=== PATIENT | female | born 1940 | race African-American/Black ===

== ENCOUNTER 2019-08-03 01:32 | Inpatient (IN) | payer MEDICARE, OTHER ==
[2019-08-03] VITALS (11 sets, daily range): BP systolic 140–201; BP diastolic 60–106
[~2019-08-03] VITALS: Ht 167.6 cm; Wt 78.6 kg
[~2019-08-03 01:32] MED LIST: ACET500T68 PO; AMLO2.5T2 PO; ASPI-630 PO; CARV25TA PO; CRESTOR20 MG PO; FERR325T14 PO; INSU100I17 SQ; INSU100I27 SQ; LACT1CAP2 PO; MULT1TAB52 PO; OMEG1CAP6 PO; PANT40TA3 PO
[2019-08-03] MEDS ORDERED: NITROGLYCERIN OINT 1 GM PACKET. TP ONE (02:15)
[2019-08-03] MEDS ORDERED: ASPIRIN 325 MG TABLET PO ONE (02:15)
--- NOTE | 2019-08-03 02:28 | PHYS DOC ---
Past History Past Medical History: Anemia, CAD, CHF, Diabetes, High Cholesterol, Hypertension, Renal Failure Additional Past Medical Histor: Visual impairment Past Surgical History: Cholecystectomy Additional Past Surgical Histo: Cataract Smoking: Non-smoker Alcohol Use: None Drug Use: None Adult General Chief Complaint Chief Complaint: SHORTNESS OF BREATH HPI HPI 79-year-old female presents via EMS with 3 day history of progressive shortness of breath with associated cough. Patient reports she woke early this morning with sensation of being "unable to breathe ". Reports worse with laying flat. Reports baseline leg swelling. Patient trialed home nebulizer treatment without significant improvement. Denies fever or chills. Denies trauma. EMS placed patient on CPAP with interval improvement of breathing. Review of Systems Review of Systems Constitutional: Denies fever or chills Eyes: Denies redness or eye pain HENT: Denies nasal congestion or sore throat Respiratory: Reports cough and shortness of breath Cardiovascular: Denies chest pain or palpitations GI: Denies abdominal pain, nausea, or vomiting : Denies dysuria or hematuria Musculoskeletal: Denies back pain; reports BLE swelling Integument: Denies rash or skin lesions Neurologic: Denies headache, focal weakness or sensory changes Complete systems were reviewed and found to be within normal limits, except as documented in this note. Current Medications Current Medications Current Medications Medications (Trade) Dose Ordered Sig/Yamilet Start Time Stop Time Status Last Admin Dose Admin Aspirin (Jose Aspirin) 325 mg 1X ONCE 08/03/19 02:15 08/03/19 02:16 DC 08/03/19 02:17 325 MG Nitroglycerin (Nitro-Bid Oint) 1 inch 1X ONCE 08/03/19 02:15 08/03/19 02:16 DC 08/03/19 02:18 1 INCH Allergies Allergies Allergies Coded Allergies Type Severity Reaction Last Updated Verified atorvastatin Allergy Intermediate 06/26/15 Yes ezetimibe Allergy Intermediate 06/26/15 Yes metformin Allergy Intermediate 06/26/15 Yes niacin Allergy Intermediate 06/26/15 Yes perindopril Allergy Intermediate 06/26/15 Yes pravastatin Allergy Intermediate 06/26/15 Yes Physical Exam Physical Exam Constitutional: Well developed, well nourished, no acute distress, non-toxic appearance HENT: Normocephalic, atraumatic, oropharynx moist Eyes: Conjunctiva normal, no discharge Neck: Normal range of motion, no tenderness, supple Cardiovascular: Heart rate normal, regular rhythm Lungs & Thorax: Bilateral breath sounds clear equal, fine rales noted bilaterally at bases Abdomen: Soft, no tenderness Skin: Warm, dry, no erythema, no rash Extremities: No tenderness, ROM intact, 2+ edema to BLE Neurologic: Alert and oriented X 3, no focal deficits noted Psychologic: Affect normal, judgement normal Current Patient Data Vital Signs Vital Signs Date Time Temp Pulse Resp B/P (MAP) Pulse Ox O2 Delivery O2 Flow Rate FiO2 08/03/19 02:18 69 24 170/83 (112) 97 Room Air EKG EKG @0142 NSR at 84bpm with occasional PAC, NO ST elevation, QRS 88ms, QT/QTc 440/524ms Radiology/Procedures Radiology/Procedures PROCEDURE: PORTABLE CHEST 1V Study: PORTABLE CHEST 1V Indication: Dyspnea. Cough. Comparison: None. Findings: The cardiomediastinal silhouette is enlarged. Aortic atherosclerotic calcifications. Calcification in the right hilar region suggestive of a granuloma. A few calcified granulomas also seen elsewhere. Somewhat prominent central vascular structures as well as mildly increased interstitial markings. Haziness at the lung bases favored secondary to volume loss. Suspected trace right pleural effusion. No discrete lobar infiltrate. No pneumothorax. No free air seen under the diaphragm. Impression: 1. The cardiomediastinal silhouette is enlarged and the central vascular structures somewhat prominent. Background increased interstitial markings raising the question of pulmonary edema and there appears to be a trace pleural effusion on the right. A discrete lobar infiltrate to suggest a superimposed infectious process is not appreciated. 2. Sequela of a remote granulomatous process. 3. Basilar volume loss. Electronically signed by: JAMI MANLEY MD (08/03/2019 3:05 AM) [facility] Course & Med Decision Making Course & Med Decision Making Pertinent Labs and Imaging studies reviewed. (See chart for details) Patient presents with history of present illness and physical exam concerning for CHF exacerbation. Symptomatic treatment provided with an has dermal nitroglycerin and Lasix. EKG stable. Labs obtained and posted to chart. H/H baseline per [facility] review. Initial troponin within normal limits. BNP elevated. CXR with some vascular congestion noted. Acute on chronic renal insufficiency noted. Bumex provided. Hypokalemia addressed. Patient requiring admission for further evaluation and treatment. Discussed with Dr. Catalan (hospitalist) who is in agreement with admission. Discussed findings and plan with patient and family, who acknowledge understanding and agreement. Dragon Disclaimer Dragon Disclaimer This electronic medical record was generated, in whole or in part, using a voice recognition dictation system. Departure Departure: Impression: Primary Impression: Acute exacerbation of CHF (congestive heart failure) Additional Impressions: Hypokalemia Acute on chronic renal insufficiency Disposition: ADMITTED INPATIENT Admitting Physician: Ignacia Catalan Condition: STABLE Referrals: IGNACIA CATALAN MD (PCP) Problem Qualifiers Primary Impression: Acute exacerbation of CHF (congestive heart failure) Heart failure type: unspecified Qualified Codes: I50.9 - Heart failure, unspecified KEIKO HAMMONDS DO Aug 03, 2019 02:28
[2019-08-03 03:03] LABS: BASO # 0.1 x10^3/uL (0.0-0.2); BASO % 1 % (0-3); EOS # 0.4 x10^3/uL (0.0-0.7); EOS % 5 % (0-3); HEMATOCRIT 23.8 % (36.0-47.0); LYMPH # 0.9 x10^3/uL (1.0-4.8); LYMPH % 12 % (24-48); MEAN CORPUSCULAR HEMOGLOBIN 27 pg (25-35); MEAN CORPUSCULAR HGB CONC 33 g/dL (31-37); MEAN CORPUSCULAR VOLUME 81 fL (79-100); MONO # 0.3 x10^3/uL (0.0-1.1); MONO % 3 % (0-9); NEUT # 6.2 x10^3uL (1.8-7.7); NEUT % 79 % (31-73); PLATELET COUNT 267 x10^3/uL (140-400); RED BLOOD COUNT 2.95 x10^6/uL (3.50-5.40); RED CELL DISTRIBUTION WIDTH 16.7 % (11.5-14.5); WHITE BLOOD COUNT 7.8 x10^3/uL (4.0-11.0)
--- NOTE | 2019-08-03 03:07 | RAD ---
Study: PORTABLE CHEST 1V Indication: Dyspnea. Cough. Comparison: None. Findings: The cardiomediastinal silhouette is enlarged. Aortic atherosclerotic calcifications. Calcification in the right hilar region suggestive of a granuloma. A few calcified granulomas also seen elsewhere. Somewhat prominent central vascular structures as well as mildly increased interstitial markings. Haziness at the lung bases favored secondary to volume loss. Suspected trace right pleural effusion. No discrete lobar infiltrate. No pneumothorax. No free air seen under the diaphragm. Impression: 1. The cardiomediastinal silhouette is enlarged and the central vascular structures somewhat prominent. Background increased interstitial markings raising the question of pulmonary edema and there appears to be a trace pleural effusion on the right. A discrete lobar infiltrate to suggest a superimposed infectious process is not appreciated. 2. Sequela of a remote granulomatous process. 3. Basilar volume loss. Electronically signed by: JAMI MANLEY MD (08/03/2019 3:05 AM) [facility]
[2019-08-03 03:29] LABS: ALBUMIN 2.8 g/dL (3.4-5.0); ALBUMIN/GLOBULIN RATIO 0.9 (1.0-1.7); CALCIUM 7.7 mg/dL (8.5-10.1); GFR 29.2; POTASSIUM 3.4 mmol/L (3.5-5.1); TOTAL BILIRUBIN 0.7 mg/dL (0.2-1.0)
[2019-08-03] MEDS ORDERED: ONDANSETRON PF 4 MG/2 ML VIAL. IV PRN (03:45)
[2019-08-03] MEDS ORDERED: DEXTROSE 50% 25 GM / 50ML DISP.SYRIN. IV PRN (03:45)
[2019-08-03] MEDS ORDERED: BUMETANIDE 1 MG/4 ML VIAL. IVP ONE (04:00)
[2019-08-03] MEDS ORDERED: POTASSIUM CHLORIDE 20 MEQ TABLET.ER. PO ONE ×2 (04:00→10:00)
--- NOTE | 2019-08-03 04:30 | EKG ---
[address] [address] Test Date: 2019-08-03 Test Time: 01:42:28 Pat Name: MILADYS ARMSTRONG Department: Room: ICU06 1 Gender: F [employer]: : [id number] Requested By: KEKIO HAMMONDS Order Number: [id number] Reading MD: Mj De Dios MD Measurements Intervals [place] Rate: 84 P: 90 NH: 238 QRS: -18 QRSD: 88 T: 22 QT: 440 QTc: 524 Interpretive Statements SINUS RHYTHM ATRIAL PREMATURE COMPLEX(ES) PROLONGED NH INTERVAL Electronically Signed On 08-13-2019 11:50:59 CDT by Mj De Dios MD
[2019-08-03 06:17] LABS: BILIRUBIN,URINE NEG (NEG); CLARITY,URINE CLEAR; COLOR,URINE YELLOW; GLUCOSE,URINE 100 mg/dL (NEG); NITRITE,URINE NEG (NEG); UROBILINOGEN,URINE 0.2 mg/dL (0.2 mg/dL)
[2019-08-03 06:18] LABS: BACTERIA,URINE FEW /HPF (0-FEW); GRANULAR CASTS,URINE FEW /HPF; HYALINE CASTS, URINE FEW /HPF; RBC,URINE OCC /HPF (0-2); SQUAMOUS EPITHELIAL CELL,UR MOD /LPF; WBC,URINE OCC /HPF (0-4)
[2019-08-03] MEDS ORDERED: GARL10002 PO (07:06)
[2019-08-03] MEDS ORDERED: ASPI81TA50 PO (07:06)
[2019-08-03] MEDS ORDERED: LOSA100T14 PO (07:06)
[2019-08-03] MEDS ORDERED: INSU100I13 SQ (07:06)
[2019-08-03] MEDS ORDERED: CARV6.253 PO (07:06)
[2019-08-03] MEDS ORDERED: ATOR40TA59 PO (07:06)
[2019-08-03] MEDS ORDERED: FURO40TA4 PO (07:06)
[2019-08-03] MEDS: INSULIN LISPRO 300 UNITS/3 ML VIAL. SQ SCH ×6 (08:00→17:00)
[2019-08-03] MEDS ORDERED: DEXTROSE ORAL GEL 15 GM TUBE. ONE (08:28)
[2019-08-03] MEDS: OMEGA-3 FATTY ACIDS/FISH OIL 1,000 MG CAPSULE. PO SCH (09:00)
[2019-08-03] MEDS ORDERED: NON FORMULARY ITEM (Garlic 1,000 MG) PO SCH (09:00)
[2019-08-03] MEDS: ASPIRIN ENTERIC COATED 81 MG TABLET.DR. PO SCH (09:04)
[2019-08-03] MEDS: LOSARTAN 50 MG TABLET. PO SCH (09:05)
[2019-08-03] MEDS: CARVEDILOL 6.25 MG TABLET PO SCH ×2 (09:06→21:03)
--- NOTE | 2019-08-03 09:24 | PDOC2 ---
CARDIAC CONSULT DATE OF CONSULT Date Of Consult DATE: 08/03/19 TIME: 09:22 REASON FOR CONSULT Reason for Consult Elevated blood pressure REFERRING PHYSICIAN Referring Physician Dr. Peter SOURCE Source: Chart review, Patient HPI History of Present Illness This is a 79 yo female who presented secondary to shortness of breath and cough. Blood pressure has been labile, which prompted this consult. Patient reports cold for the last couple of weeks. Has cough, but has been non-productive despite feeling that she has a lot of secretions. Last night, went to be as usual. Woke up about 1am and couldn't breath. Was very short of air. Family attempted to calm her breathing, but shortness of breath persisted so they landy led EMS. Patient denies as chest pain, palpitation, dizziness, diaphoresis, or nausea/vomiting. Feeling better this am. Blood pressure has been significantly elevated this morning. Reports compliance with medications including losartan and coreg. PAST MEDICAL HISTORY Cardiovascular: CHF, HTN, hyperipidemia GI: GI bleed Heme/Onc: Anemia NOS Musculoskeletal: Osteoarthritis Renal/: Chronic renal insuff Endocrine: Diabetes PAST SURGICAL HISTORY Past Surgical History: No pertinent history FAMILY HISTORY Family History: Diabetes SOCIAL HISTORY Smoke: No ALCOHOL: none Drugs: None Lives: with Family CURRENT MEDICATIONS Current Medications Current Medications Nitroglycerin (Nitro-Bid Oint) 1 inch 1X ONCE TP Last administered on 08/03/19at 02:18; Start 08/03/19 at 02:15; Stop 08/03/19 at 02:16; Status DC Aspirin (Jose Aspirin) 325 mg 1X ONCE PO Last administered on 08/03/19at 02:17; Start 08/03/19 at 02:15; Stop 08/03/19 at 02:16; Status DC Bumetanide (Bumex) 0.5 mg 1X ONCE IVP Last administered on 08/03/19at 05:07; Start 08/03/19 at 04:00; Stop 08/03/19 at 04:01; Status DC Potassium Chloride (Klor-Con) 40 meq 1X ONCE PO Last administered on 08/03/19at 04:03; Start 08/03/19 at 04:00; Stop 08/03/19 at 04:01; Status DC Ondansetron HCl (Zofran) 4 mg PRN Q4HRS PRN IV NAUSEA/VOMITING; Start 08/03/19 at 03:45; Stop 08/04/19 at 03:44 Insulin Human Lispro (HumaLOG) 0-5 UNITS TIDWMEALS SQ ; Start 08/03/19 at 08:00 Dextrose (Dextrose 50%-Water Syringe) 12.5 gm PRN Q15MIN PRN IV SEE COMMENTS Last administered on 08/03/19at 08:35; Start 08/03/19 at 03:45 Influenza Virus Vaccine Quadrival (Afluria Quad 2019-20 (3yr Up) Syringe) 0.5 ml ONCE ONCE VAX IM ; Start 08/04/19 at 09:00; Stop 08/04/19 at 09:01 Aspirin (Aspirin Enteric Coated) 81 mg DAILY PO Last administered on 08/03/19at 09:04; Start 08/03/19 at 09:00 Carvedilol (Coreg) 6.25 mg BID PO Last administered on 08/03/19at 09:06; Start 08/03/19 at 09:00 Fish Oil (Fish Oil) 1,000 mg DAILY PO Last administered on 08/03/19at 09:00; Start 08/03/19 at 09:00 Atorvastatin Calcium (Lipitor) 40 mg QHS PO ; Start 08/03/19 at 21:00 Non-Formulary Medication (Garlic ) 1,000 mg DAILY PO ; Start 08/03/19 at 09:00; Stop 08/03/19 at 07:23; Status DC Insulin Human Lispro (HumaLOG) 4 units TIDWMEALS SQ ; Start 08/03/19 at 08:00 Insulin Glargine (Lantus Syringe) 12 unit QHS SQ ; Start 08/03/19 at 21:00 Losartan Potassium (Cozaar) 100 mg DAILY PO Last administered on 08/03/19at 09:05; Start 08/03/19 at 09:00 Glucose (Insta-Glucose) 15 gm STK-MED ONCE .ROUTE ; Start 08/03/19 at 08:28; Stop 08/03/19 at 08:29; Status DC Active Scripts Active Reported Garlic 1,000 Mg Capsule 1,000 Mg PO DAILY LAST DOSE GIVEN: DATE: TIME: NEXT DOSE DUE: DATE: TIME: Aspir-Low (Aspirin) 81 Mg Tablet.dr 81 Mg PO DAILY LAST DOSE GIVEN: DATE: TIME: NEXT DOSE DUE: DATE: TIME: Furosemide 40 Mg Tablet 40 Mg PO [id number] LAST DOSE GIVEN: DATE: TIME: NEXT DOSE DUE: DATE: TIME: Atorvastatin Calcium 40 Mg Tablet 40 Mg PO DAILY LAST DOSE GIVEN: DATE: TIME: NEXT DOSE DUE: DATE: TIME: Losartan Potassium 100 Mg Tablet 100 Mg PO DAILY LAST DOSE GIVEN: DATE: TIME: NEXT DOSE DUE: DATE: TIME: Carvedilol 6.25 Mg Tablet 6.25 Mg PO BID LAST DOSE GIVEN: DATE: TIME: NEXT DOSE DUE: DATE: TIME: Lantus Solostar (Insulin Glargine,Hum.rec.anlog) 100 Unit/1 Ml Insuln.pen 12 Unit SQ QHS LAST DOSE GIVEN: DATE: TIME: NEXT DOSE DUE: DATE: TIME: Fish Oil 1,000 Mg Capsule ([place]-3 Fatty Acids/Fish Oil) 1 Each Capsule 1 Cap PO DAILY LAST DOSE GIVEN: DATE: TIME: NEXT DOSE DUE: DATE: TIME: Novolog Flexpen (Insulin Aspart) 100 Unit/1 Ml Insuln.pen 4 Unit SQ TIDWMEALS LAST DOSE GIVEN: DATE: TIME: NEXT DOSE DUE: DATE: TIME: ALLERGIES Allergies: Coded Allergies: ezetimibe (Verified Allergy, Intermediate, 06/26/15) metformin (Verified Allergy, Intermediate, 06/26/15) niacin (Verified Allergy, Intermediate, 06/26/15) perindopril (Verified Allergy, Intermediate, 06/26/15) pravastatin (Verified Allergy, Intermediate, 06/26/15) ROS Review of Systems 14 point ROS conducted with pertinent positives noted above in HPI PHYSICAL EXAM General: Alert, Oriented X3, Cooperative, No acute distress HEENT: Atraumatic, Mucous membr. moist/pink Lungs: Other (rhonchi throughout ) Heart: Regular rate, Normal S1, Normal S2 Abdomen: Soft Extremities: Other (trace bilateral LE edema ) Skin: No breakdown Neuro: Normal speech, Sensation intact Psych/Mental Status: Mental status NL, Mood NL MUSCULOSKELETAL: Osteoarthritic changes both hands VITALS Vital Signs Vital Signs Date Time Temp Pulse Resp B/P (MAP) Pulse Ox O2 Delivery O2 Flow Rate FiO2 08/03/19 09:06 212/117 08/03/19 09:05 72 08/03/19 05:30 20 99 Room Air 08/03/19 04:30 97.1 LABS LABS Laboratory Tests Test 08/03/19 01:55 08/03/19 05:30 08/03/19 06:40 08/03/19 08:27 White Blood Count 7.8 x10^3/uL (4.0-11.0) Red Blood Count 2.95 x10^6/uL (3.50-5.40) Hemoglobin 8.0 g/dL (12.0-15.5) Hematocrit 23.8 % (36.0-47.0) Mean Corpuscular Volume 81 fL (79-100) Mean Corpuscular Hemoglobin 27 pg (25-35) Mean Corpuscular Hemoglobin Concent 33 g/dL (31-37) Red Cell Distribution Width 16.7 % (11.5-14.5) Platelet Count 267 x10^3/uL (140-400) Neutrophils (%) (Auto) 79 % (31-73) Lymphocytes (%) (Auto) 12 % (24-48) Monocytes (%) (Auto) 3 % (0-9) Eosinophils (%) (Auto) 5 % (0-3) Basophils (%) (Auto) 1 % (0-3) Neutrophils # (Auto) 6.2 x10^3uL (1.8-7.7) Lymphocytes # (Auto) 0.9 x10^3/uL (1.0-4.8) Monocytes # (Auto) 0.3 x10^3/uL (0.0-1.1) Eosinophils # (Auto) 0.4 x10^3/uL (0.0-0.7) Basophils # (Auto) 0.1 x10^3/uL (0.0-0.2) Sodium Level 143 mmol/L (136-145) Potassium Level 3.4 mmol/L (3.5-5.1) Chloride Level 107 mmol/L (98-107) Carbon Dioxide Level 28 mmol/L (21-32) Anion Gap 8 (6-14) Blood Urea Nitrogen 31 mg/dL (7-20) Creatinine 2.0 mg/dL (0.6-1.0) Estimated GFR (Cockcroft-Gault) 29.2 BUN/Creatinine Ratio 16 (6-20) Glucose Level 114 mg/dL (70-99) Lactic Acid Level 1.2 mmol/L (0.4-2.0) Calcium Level 7.7 mg/dL (8.5-10.1) Magnesium Level 2.0 mg/dL (1.8-2.4) Total Bilirubin 0.7 mg/dL (0.2-1.0) Aspartate Amino Transf (AST/SGOT) 34 U/L (15-37) Alanine Aminotransferase (ALT/SGPT) 28 U/L (14-59) Alkaline Phosphatase 151 U/L (46-116) Creatine Kinase 143 U/L (26-192) Creatine Kinase MB (Mass) 2.2 ng/mL (0.0-3.6) Creatine Kinase MB Relative Index 1.5 % (0-4) Troponin I Quantitative < 0.017 ng/mL (0-0.055) 0.019 ng/mL (0-0.055) YT-Qjq-F-Type Natriuretic Peptide 38403 pg/mL (0-449) Total Protein 6.0 g/dL (6.4-8.2) Albumin 2.8 g/dL (3.4-5.0) Albumin/Globulin Ratio 0.9 (1.0-1.7) Urine Collection Type Unknown Urine Color Yellow Urine Clarity Clear Urine pH 5.5 Urine Specific [place] 1.020 Urine Protein >100 mg/dl (NEG-TRACE) Urine Glucose (UA) 100 mg/dL (NEG) Urine Ketones (Stick) Neg mg/dL (NEG) Urine Blood Mod (NEG) Urine Nitrite Neg (NEG) Urine Bilirubin Neg (NEG) Urine Urobilinogen Dipstick 0.2 mg/dL (0.2 mg/dL) Urine Leukocyte Esterase Neg (NEG) Urine RBC Occ /HPF (0-2) Urine WBC Occ /HPF (0-4) Urine Squamous Epithelial Cells Mod /LPF Urine Bacteria Few /HPF (0-FEW) Urine Hyaline Casts Few /HPF Urine Granular Casts Few /HPF Glucose (Fingerstick) 36 mg/dL (70-99) Test 08/03/19 08:39 08/03/19 08:42 Glucose Level 264 mg/dL (70-99) Glucose (Fingerstick) 238 mg/dL (70-99) ASSESSMENT/PLAN Assessment/Plan 1. Dyspnea with bronchitis and mild a/c CHF 2. Acute on chronic probable diastolic HF 3. Accelerated hypertension; remains labile 4. Hyperlipidemia; statin 5. Diabetes, II with episode of hypoglycemia 6. CKD 7. Hypokalemia Recommendations Mild diuresis with monitoring or renal function Baseline echo Losartan and Coreg resumed this morning Hydralazine IV PRN Monitor trends. Add Norvasc if blood pressure remains elevated ASA, statin Further recs pending above CHAD MCKEON APRN Aug 03, 2019 09:24
[2019-08-03] MEDS: hydrALAZINE 20 MG/ML VIAL. IV PRN ×3 (09:47→22:15)
[2019-08-03] MEDS ORDERED: FUROSEMIDE 20 MG/2 ML VIAL IVP ONE (10:00)
--- NOTE | 2019-08-03 16:13 | HP ---
ADMIT DATE: 08/03/2019 HISTORY OF PRESENT ILLNESS: The patient is a 79-year-old -[place] female patient who came to the Emergency Room with ____ complaints of progressive shortness of breath associated with cough. The patient stated that she has been having cough for almost 2 weeks now; however, she woke up early this morning with a sensation of being unable to breathe. It was worse with lying flat ____ leg swelling. The patient's tried home nebulizer treatment without much improvement. She denied any chest pain, denied any chills, rigors or fever. She was started on CPAP with improvement in her breathing and was brought to the Emergency Room where she was ____. Her lab work shows that she has normochromic normocytic anemia and her chemistry shows that she has chronic kidney disease. Her beta natriuretic peptide was 16,461, mild hypokalemia. Urinalysis was positive for large amount of protein and glucose, negative for ketones, moderate amount of blood, negative for nitrite and leukocyte esterase. Her chest x-ray ____ increased interstitial markings raising questionable pulmonary edema. There is trace pleural effusion on the right side with discrete lobar infiltrate suggesting superimposed infection ____ was not appreciated, has sequela of remote granulomatous process and basilar volume loss. Her troponin was less than 0.017 and the patient was admitted to the ICU with acute on chronic diastolic congestive heart failure ____. The patient is known to have hyperlipidemia, type 2 diabetes with an episode of hypoglycemia this morning. She has chronic kidney disease and hypokalemia. Her home medications were resumed and was admitted with a plan to do 2 more sets of cardiac enzyme, consult the Cardiology team. PAST MEDICAL HISTORY: Significant for hypertension, hyperlipidemia. She is known to have chronic diastolic congestive heart failure, GI bleed, anemia, osteoarthritis, chronic renal insufficiency and type 2 diabetes mellitus. FAMILY HISTORY: Significant for type 2 diabetes. PAST SURGICAL HISTORY: Significant for esophagogastroduodenoscopy, cataract extraction, cholecystectomy and colonoscopy. ALLERGIES: She is allergic to VYTORIN, ZETIA, NIACIN, METFORMIN, PRAVASTATIN and PERINDOPRIL. FAMILY HISTORY: Positive for Alzheimer's disease. SOCIAL HISTORY: She is single and retired. She does not smoke, does not use drugs. No children. She lives with her niece and her children. REVIEW OF SYSTEMS: The patient has had bilateral cataract extraction, but denied any blurring of vision, glaucoma or macular degeneration. Denied any earache, tinnitus or sensorineural deafness. Denied any nosebleeds, stuffy nose or postnasal drip. Denied any sore throat, sore tongue, toothache, hoarseness of voice or difficulty swallowing. Denied any nausea, vomiting, diarrhea or constipation. Denied any hematemesis, melena, hematochezia. Denied any dysuria, frequency or hematuria. She denied any chest pain, but did complain of shortness of breath, cough, mostly dry. PHYSICAL EXAMINATION: GENERAL: On arrival to the Emergency Room, the patient was pale, but no jaundice, cyanosis or thyromegaly. No jugular venous distention. Mild bilateral lower limb edema, more on the right than left. VITAL SIGNS: Her heart rate was 86, blood pressure was 170/83, temperature was 97.5, respiratory rate 24 and oxygen saturation was 98% on room air. HEAD, EYES, EARS, NOSE AND THROAT: Showed normocephalic, atraumatic. NECK: Supple. HEART: Showed normal first and second heart sounds with no gallop or murmur. CHEST: Shows central trachea, equally reduced expansion, reduced air entry, vesicular sounds. I could not really appreciate any crepitation or rhonchi. ABDOMEN: Distended, soft, nontender. NEUROLOGIC: She is awake, alert, responding appropriately. All cranial nerves intact. EXTREMITIES: She moves extremities without difficulty. LABORATORY DATA: This morning showed white cell count 7800, hemoglobin 8, hematocrit 24, MCV 81 and platelet count 267,000 with normal manual differential. Her chemistry showed a serum sodium ____, potassium 3.4, chloride 107, bicarbonate 28, anion gap of 8, BUN 31, creatinine 2, estimated GFR was 29 mL per minute. Her glucose was ____, calcium was 7.7, magnesium 2. Total bilirubin, AST, ALT, alkaline phosphatase ____. CK was 143. Her beta natriuretic peptide was 16,461. Total protein was 6, albumin was 2.8. Her urinalysis showed the urine was yellow, clear with pH of 5.5, specific gravity of 1.020. The urine was positive for protein, glucose, negative for ketones. There was moderate amount of blood ____ negative for nitrites ____ rbc's, no wbc's and no bacteria.. Her chest x-ray showed that her cardiomediastinal silhouette is enlarged with somewhat prominent central vascular structures, background increased interstitial marking, raising the question of pulmonary edema and there appears to be a trace pleural effusion in the right, discrete lobar infiltrate ____ superimposed infectious process is not appreciated as sequela of remote granulomatous process. ASSESSMENT AND PLAN: In summary, the patient was admitted with acute on chronic diastolic congestive heart failure, hypokalemia and acute on chronic kidney injury. Her baseline creatinine is 1.4-1.5. UMAIR CATALAN MD DR: STEFFANIE/verenice JOB#: [id number] / [id number]
--- NOTE | 2019-08-03 16:43 | RAD ---
LEFT LEG VENOUS DOPPLER STUDY: Clinical indications: Left leg swelling and sudden onset of shortness of breath. Findings: Duplex sonography (including escobar scale evaluation and color flow and waveform spectral analysis) of the proximal aspect of the greater saphenous vein and the proximal aspect of the profunda femoral vein and the entire length of the common femoral and superficial femoral and popliteal veins and the tibioperoneal trunk and the proximal aspect of the posterior tibial and peroneal veins of the left leg was performed. Normal compressibility, augmentation of color Doppler flow after calf compression, and respiratory variation of Doppler flow is seen. Thus, there are no sonographic findings of deep venous thrombosis within these veins. Impression: There are no sonographic findings of deep venous thrombosis within the veins discussed above of the left lower extremity. RIGHT LEG VENOUS DOPPLER STUDY: Clinical indications: Right leg swelling and sudden onset of shortness of breath. Findings: Duplex sonography (including escobar scale evaluation and color flow and waveform spectral analysis) of the proximal aspect of the greater saphenous vein and proximal aspect of the profunda femoral vein and the entire length of the common femoral and superficial femoral and popliteal veins and the tibioperoneal trunk and the proximal aspect of the posterior tibial and peroneal veins of the right leg was performed. Normal compressibility, augmentation of color Doppler flow after calf compression, and respiratory variation of Doppler flow is seen. Thus, there are no sonographic findings of deep venous thrombosis within these veins. Impression: There are no sonographic findings of deep venous thrombosis within the veins discussed above of the right lower extremity. Electronically signed by: Alejandro Eckert MD (08/03/2019 4:40 PM) [id number]
[2019-08-03] MEDS ORDERED: ATORVASTATIN CALCIUM 20 MG TABLET PO SCH (21:00)
[2019-08-03] MEDS ORDERED: INSULIN GLARGINE SYRINGE. SQ SCH (21:00)
[2019-08-03] MEDS ORDERED: MELATONIN 3 MG TABLET PO PRN (23:45)
[2019-08-04] VITALS (8 sets, daily range): BP systolic 138–184; BP diastolic 60–75
[2019-08-04] MEDS: hydrALAZINE 20 MG/ML VIAL. IV PRN ×2 (05:55→11:59)
[2019-08-04] MEDS: INSULIN LISPRO 300 UNITS/3 ML VIAL. SQ SCH ×4 (08:00→12:00)
[2019-08-04] MEDS: ASPIRIN ENTERIC COATED 81 MG TABLET.DR. PO SCH (08:24)
[2019-08-04] MEDS: OMEGA-3 FATTY ACIDS/FISH OIL 1,000 MG CAPSULE. PO SCH (08:26)
[2019-08-04] MEDS: LOSARTAN 50 MG TABLET. PO SCH (08:26)
[2019-08-04] MEDS: CARVEDILOL 6.25 MG TABLET PO SCH (08:26)
[2019-08-04] MEDS ORDERED: FLU VAX QS 2019-20 (36MOS+)/PF 0.5 ML SYRINGE. VAX IM ONE (09:00)
[2019-08-04 10:54] LABS: CALCIUM 8.1 mg/dL (8.5-10.1); CREATININE 2.1 mg/dL (0.6-1.0); GFR 27.6; POTASSIUM 4.3 mmol/L (3.5-5.1)
[2019-08-04 11:46] LABS: HEMATOCRIT 25.1 % (36.0-47.0); HEMOGLOBIN 8.4 g/dL (12.0-15.5)
[2019-08-04] MEDS ORDERED: amLODIPine BESYLATE 5 MG TABLET PO SCH (12:15)
--- NOTE | 2019-08-04 12:52 | PDOC ---
CARDIO Progress Notes Date & Time Date of Service DATE: 08/04/19 TIME: 12:47 Time of Evaluation 12:47 Subjective Notes Breathing much better today. Vitals Vitals Vital Signs Date Time Temp Pulse Resp B/P (MAP) Pulse Ox O2 Delivery O2 Flow Rate FiO2 08/04/19 11:59 72 184/74 08/04/19 11:23 16 100 Room Air 08/04/19 05:50 97.2 Weight Weight [ ] Input and Output I.O. Intake and Output0 08/04/19 06:59 Intake Total 450 ml Output Total 1350 ml Balance -900 ml Intake Oral 450 ml Output Urine Total 1350 ml Laboratory Labs Laboratory Tests Test 08/03/19 01:55 08/03/19 05:30 08/03/19 06:40 08/03/19 08:27 White Blood Count 7.8 x10^3/uL (4.0-11.0) Red Blood Count 2.95 x10^6/uL (3.50-5.40) Hemoglobin 8.0 g/dL (12.0-15.5) Hematocrit 23.8 % (36.0-47.0) Mean Corpuscular Volume 81 fL (79-100) Mean Corpuscular Hemoglobin 27 pg (25-35) Mean Corpuscular Hemoglobin Concent 33 g/dL (31-37) Red Cell Distribution Width 16.7 % (11.5-14.5) Platelet Count 267 x10^3/uL (140-400) Neutrophils (%) (Auto) 79 % (31-73) Lymphocytes (%) (Auto) 12 % (24-48) Monocytes (%) (Auto) 3 % (0-9) Eosinophils (%) (Auto) 5 % (0-3) Basophils (%) (Auto) 1 % (0-3) Neutrophils # (Auto) 6.2 x10^3uL (1.8-7.7) Lymphocytes # (Auto) 0.9 x10^3/uL (1.0-4.8) Monocytes # (Auto) 0.3 x10^3/uL (0.0-1.1) Eosinophils # (Auto) 0.4 x10^3/uL (0.0-0.7) Basophils # (Auto) 0.1 x10^3/uL (0.0-0.2) Sodium Level 143 mmol/L (136-145) Potassium Level 3.4 mmol/L (3.5-5.1) Chloride Level 107 mmol/L (98-107) Carbon Dioxide Level 28 mmol/L (21-32) Anion Gap 8 (6-14) Blood Urea Nitrogen 31 mg/dL (7-20) Creatinine 2.0 mg/dL (0.6-1.0) Estimated GFR (Cockcroft-Gault) 29.2 BUN/Creatinine Ratio 16 (6-20) Glucose Level 114 mg/dL (70-99) Lactic Acid Level 1.2 mmol/L (0.4-2.0) Calcium Level 7.7 mg/dL (8.5-10.1) Magnesium Level 2.0 mg/dL (1.8-2.4) Total Bilirubin 0.7 mg/dL (0.2-1.0) Aspartate Amino Transf (AST/SGOT) 34 U/L (15-37) Alanine Aminotransferase (ALT/SGPT) 28 U/L (14-59) Alkaline Phosphatase 151 U/L (46-116) Creatine Kinase 143 U/L (26-192) Creatine Kinase MB (Mass) 2.2 ng/mL (0.0-3.6) Creatine Kinase MB Relative Index 1.5 % (0-4) Troponin I Quantitative < 0.017 ng/mL (0-0.055) 0.019 ng/mL (0-0.055) YB-Stm-S-Type Natriuretic Peptide 67503 pg/mL (0-449) Total Protein 6.0 g/dL (6.4-8.2) Albumin 2.8 g/dL (3.4-5.0) Albumin/Globulin Ratio 0.9 (1.0-1.7) Urine Collection Type Unknown Urine Color Yellow Urine Clarity Clear Urine pH 5.5 Urine Specific [place] 1.020 Urine Protein >100 mg/dl (NEG-TRACE) Urine Glucose (UA) 100 mg/dL (NEG) Urine Ketones (Stick) Neg mg/dL (NEG) Urine Blood Mod (NEG) Urine Nitrite Neg (NEG) Urine Bilirubin Neg (NEG) Urine Urobilinogen Dipstick 0.2 mg/dL (0.2 mg/dL) Urine Leukocyte Esterase Neg (NEG) Urine RBC Occ /HPF (0-2) Urine WBC Occ /HPF (0-4) Urine Squamous Epithelial Cells Mod /LPF Urine Bacteria Few /HPF (0-FEW) Urine Hyaline Casts Few /HPF Urine Granular Casts Few /HPF Triglycerides Level 56 mg/dL (0-150) Cholesterol Level 121 mg/dL (0-200) LDL Cholesterol, Calculated 58 mg/dL (0-100) VLDL Cholesterol, Calculated 11 mg/dL (0-40) Non-HDL Cholesterol Calculated 69 mg/dL (0-129) HDL Cholesterol 52 mg/dL (40-60) Cholesterol/HDL Ratio 2.0 Glucose (Fingerstick) 36 mg/dL (70-99) Test 08/03/19 08:39 08/03/19 08:42 08/03/19 09:22 08/03/19 10:12 Glucose Level 264 mg/dL (70-99) Glucose (Fingerstick) 238 mg/dL (70-99) 111 mg/dL (70-99) Troponin I Quantitative < 0.017 ng/mL (0-0.055) Test 08/03/19 10:48 08/03/19 11:50 08/03/19 16:22 08/03/19 20:48 Glucose (Fingerstick) 87 mg/dL (70-99) 80 mg/dL (70-99) 88 mg/dL (70-99) 170 mg/dL (70-99) Test 08/04/19 08:15 08/04/19 10:25 08/04/19 12:07 Glucose (Fingerstick) 87 mg/dL (70-99) 156 mg/dL (70-99) Hemoglobin 8.4 g/dL (12.0-15.5) Hematocrit 25.1 % (36.0-47.0) Sodium Level 143 mmol/L (136-145) Potassium Level 4.3 mmol/L (3.5-5.1) Chloride Level 107 mmol/L (98-107) Carbon Dioxide Level 27 mmol/L (21-32) Anion Gap 9 (6-14) Blood Urea Nitrogen 38 mg/dL (7-20) Creatinine 2.1 mg/dL (0.6-1.0) Estimated GFR (Cockcroft-Gault) 27.6 Glucose Level 155 mg/dL (70-99) Calcium Level 8.1 mg/dL (8.5-10.1) Physical Exams HEENT: Neck Supple W Full Motion Chest: Symmetric Lungs: Clear to Auscultation Heart: S1S2, RRR Abdomen: Soft N/T Extremities: No Edema Neurology: alert, oriented, follow commands Assessment Assessment 1. Dyspnea with bronchitis and mild a/c CHF 2. Acute on chronic probable diastolic HF; better compensated 3. Accelerated hypertension; remains labile 4. Hyperlipidemia; statin 5. Diabetes, II 6. CKD 7. Hypokalemia Recommendations Add Norvasc for better Continue losartan and coreg ASA, statin Supportive care from a CV standpoint. CHAD MCKEON APRN Aug 04, 2019 12:52
[2019-08-04] MEDS ORDERED: AMLO5TAB10 PO (15:03)
--- NOTE | 2019-08-04 21:13 | DS ---
DATE OF DISCHARGE: 08/04/2019 HOSPITAL COURSE: The patient is a 79-year-old female patient who was admitted with shortness of breath, felt to be due to [id number] congestive heart failure, accelerated hypertension, hyperlipidemia, type 2 diabetes, chronic kidney disease and hypokalemia. Her potassium has improved. The patient is actually feeling much better, has been up and about walking with a walker. Her oxygen saturation is 100 ____. 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 PHYSICAL EXAMINATION: GENERAL: On examining her, she looked pale, no jaundice, cyanosis, or thyromegaly. No jugular venous distention. No limb edema. VITAL SIGNS: Her heart rate was 72, blood pressure was 158/71, temperature was 98, respiratory rate was 16 and oxygen saturation was 100% on room air. HEAD, EYES, EARS, NOSE AND THROAT: Showed normocephalic, atraumatic. NECK: Supple. HEART: Showed normal first and second heart sounds with no gallop or murmur. CHEST: Clear to auscultation. No crepitation or rhonchi. ABDOMEN: Distended, soft, nontender. NEUROLOGIC: She is awake, alert, responding appropriately. All cranial nerves intact. EXTREMITIES: She moves extremities without difficulty. She ambulates with a walker. LABORATORY DATA: Her lab work showed serum sodium of 143, potassium 4.3, chloride 107, bicarbonate 27, anion gap of 9, BUN 38, creatinine 2.1, estimated GFR was 27 mL per minute, her glucose 155, calcium was 8.1. Serum iron, TIBC and iron saturation were all low and serum ferritin was high at 756 mcg/L. White cell count was 7800, hemoglobin 8.4, hematocrit 25, MCV 81 and platelet count 257,000. DISCHARGE MEDICATIONS: The patient was discharged home to continue on aspirin 81 mg once a day, atorvastatin calcium 40 mg daily, carvedilol 6.25 mg daily, furosemide 40 mg twice a day, garlic 1000 mg daily, she is on NovoLog insulin 4 units subcutaneously before meals and Lantus insulin 12 units at bedtime, losartan potassium 100 mg daily, omega-3 fatty acid 1000 mg once a day and we added also amlodipine 5 mg once a day. FINAL DISCHARGE DIAGNOSES: Vjpeu-qd-bobduar diastolic congestive heart failure, chronic kidney disease, anemia of chronic kidney disease, hypertension, hyperlipidemia and type 2 diabetes. UMAIR CATALAN MD DR: Gagandeep JOB#: [id number] / [id number]
--- NOTE | 2019-08-05 02:49 | PN ---
DATE: 08/04/2019 SUBJECTIVE: The patient is sitting comfortably in her chair, in no apparent distress. On questioning her, she stated that she is feeling much better. She has been up and about, walking with a walker and doing very well. Her oxygen saturation is 100% on room air. Her blood pressure, however, continued to be suboptimally controlled. PHYSICAL EXAMINATION: GENERAL: When I examined her this morning, she looked pale, but no jaundice, cyanosis or thyromegaly. No jugular venous distention. No limb edema. VITAL SIGNS: Her heart rate was 72, blood pressure was 184/74, temperature was 97.2, respiratory rate was 22 and oxygen saturation was 100%. HEAD, EYES, EARS, NOSE AND THROAT: Normocephalic, atraumatic. NECK: Supple. HEART: Showed normal first and second heart sounds with no gallop, rub or murmur. CHEST: Clear to auscultation. No crepitation or rhonchi. ABDOMEN: Distended, soft, nontender. No guarding or rigidity. No organomegaly. All hernial orifice intact. Bowel sounds normal. NEUROLOGIC: She is awake, alert, responding appropriately. All cranial nerves intact. She moves extremities without difficulty. She ambulates with a walker with minimal assistance. Her intake and output were incompletely recorded. LABORATORY DATA: Her lab work this morning showed a hemoglobin of 8.4, hematocrit 25. Her chemistry, however, showed a serum sodium 143, potassium 4.3, chloride 107, bicarbonate 27, anion gap of 9, BUN 38, creatinine 2.1. Estimated GFR was 27 mL per minute. Her glucose was 155. Her calcium was 8.1. ASSESSMENT AND PLAN: 1. Chronic diastolic congestive heart failure, feeling much better. 2. Hypokalemia, resolved. 3. Acute on chronic kidney injury. Her creatinine continued to be stable around 2.1. 4. Other medical problems include hyperlipidemia, type 2 diabetes mellitus, anemia of chronic kidney disease and osteoarthritis. UMAIR CATALAN MD DR: STEFFANIE/verenice JOB#: [id number] / [id number]
--- NOTE | 2019-08-07 11:23 | CARD ---
MR#: [id number] Date of Study: 08/03/2019 Ordering Physician: CHAD MCKEON, Referring Physician: CHAD MCKEON, Tech: Neris Jean APPROVED REPORT EXAM: Two-dimensional and M-mode echocardiogram with Doppler and color Doppler. Other Information Quality : GoodHR: 94bpm INDICATION Dyspnea Cardiac Disease: CAD Congestive Heart Failure RISK FACTORS Hypertension Hyperlipidemia Diabetes 2D DIMENSIONS RVDd3.0 (2.9-3.5cm)Left Atrium(2D)4.0 (1.6-4.0cm) IVSd1.0 (0.7-1.1cm)Aortic Root(2D)2.5 (2.0-3.7cm) LVDd5.0 (3.9-5.9cm)LVOT Diameter1.6 (1.8-2.4cm) PWd0.8 (0.7-1.1cm)LVDs3.9 (2.5-4.0cm) FS (%) 23.7 %SV56.9 ml LVEF(%)47.0 (>50%) Aortic Valve AoV Peak Wayne.101.8cm/sAoV VTI25.9cm AO Peak GR.4.1mmHgLVOT Peak Wayne.84.5cm/s LVOT VTI 23.10cmAO Mean GR.3mmHg BRENT (VMAX)1.38pb3HLZ (VTI)1.79cm2 Mitral Valve MV E Hqnjyyqz357.1cm/sMV DECEL NWSH158ug MV A Dtqlixet481.5cm/sE/A Ratio1.2 Pulmonary Valve PV Peak Ifsoijfb20.9cm/sPV Peak Grad.4mmHg Tricuspid Valve TR P. Pqxbduom611hz/sRAP NSZKQBYC2slWk TR Peak Gr.39mpBrDDZQ84ckZm Pulmonary Vein S1 Ugxlggyj66.0cm/sD2 Fhojvdao75.9cm/s LEFT VENTRICLE The left ventricle is normal size. There is borderline concentric left ventricular hypertrophy. The l eft ventricular systolic function is low normal. The Ejection Fraction is 50%. There is normal LV seg mental wall motion. Transmitral Doppler flow pattern is Grade II-pseudonormal filling dynamics. RIGHT VENTRICLE The right ventricle is normal size. There is normal right ventricular wall thickness. The right ventr icular systolic function is normal. ATRIA The left atrium is borderline dilated. The right atrium size is normal. The interatrial septum is int act with no evidence for an atrial septal defect or patent foramen ovale as noted on 2-D or Doppler i maging. AORTIC VALVE The aortic valve is normal in structure and function. Doppler and Color Flow revealed no significant aortic regurgitation. There is no significant aortic valvular stenosis. MITRAL VALVE The mitral valve is normal in structure and function. There is no evidence of mitral valve prolapse. There is no mitral valve stenosis. Doppler and Color-flow revealed moderate mitral regurgitation. TRICUSPID VALVE The tricuspid valve is normal in structure and function. Doppler and Color Flow revealed severe tricu spid regurgitation with an estimated PAP of 71 mmHg. There is severe pulmonary hypertension. There is no tricuspid valve prolapse or vegetation. There is no tricuspid valve stenosis. PULMONIC VALVE The pulmonic valve is not well visualized. Doppler and Color Flow revealed moderate to severe pulmoni c valvular regurgitation. GREAT VESSELS The aortic root is normal in size. The IVC is dilated. PERICARDIAL EFFUSION There is no evidence of significant pericardial effusion. Critical Notification Critical Value: No <Conclusion> The left ventricular systolic function is low normal. The Ejection Fraction is 50%. There is normal LV segmental wall motion. Moderate mitral regurgitation. Severe tricuspid regurgitation with an estimated PAP of 71 mmHg. There is severe pulmonary hypertension. There is no evidence of significant pericardial effusion. Signed by : Moreno Bey, Electronically Approved : 08/03/2019 16:40:07
== END 2019-08-04 15:35 | disposition home health service (06) | DRG 291 ==
LOC: ER 01:32 → ICU 03:35
PROVIDERS: ADMIT Internal Medicine; ATTEND Internal Medicine
DX: I13.0 Hypertensive heart and chronic kidney disease with heart failure and stage 1 through stage 4 chronic kidney disease, or unspecified chronic kidney disease (principal); I50.33 Acute on chronic diastolic (congestive) heart failure; N17.9 Acute kidney failure, unspecified; N18.9 Chronic kidney disease, unspecified; E11.22 Type 2 diabetes mellitus with diabetic chronic kidney disease; E87.6 Hypokalemia; I25.10 Atherosclerotic heart disease of native coronary artery without angina pectoris; E78.00 Pure hypercholesterolemia, unspecified; H54.7 Unspecified visual loss; M19.90 Unspecified osteoarthritis, unspecified site; J40 Bronchitis, not specified as acute or chronic; E78.5 Hyperlipidemia, unspecified; E11.649 Type 2 diabetes mellitus with hypoglycemia without coma; D63.1 Anemia in chronic kidney disease; Z90.49 Acquired absence of other specified parts of digestive tract; Z88.8 Allergy status to other drugs, medicaments and biological substances; Z83.3 Family history of diabetes mellitus; Z82.0 Family history of epilepsy and other diseases of the nervous system
CPT/HCPCS: 36415; 71045; 80048; 80053; 80061; 81001; 82553; 82728; 82947; 83540; 83550; 83605; 83735; 83880; 84484; 85014; 85018; 85025; 90471; 90686; 93005; 93306; 93970; J0360; J1815; J3490; 99285-25

== ENCOUNTER 2019-11-11 09:35 | Inpatient (IN) | payer OTHER ==
[~2019-11-11] VITALS: Ht 170.2 cm; Wt 94.5 kg
[~2019-11-11 09:35] MED LIST changes: +AMLO5TAB10 PO; +ASPI81TA50 PO; +ATOR40TA59 PO; +CARV6.253 PO; +FURO40TA4 PO; +GARL10002 PO; +INSU100I13 SQ; +LOSA100T14 PO
--- NOTE | 2019-11-11 10:01 | PHYS DOC ---
Past History Past Medical History: Anemia, CAD, CHF, Diabetes, High Cholesterol, Hypertension, Renal Failure Additional Past Medical Histor: Visual impairment Past Surgical History: Cholecystectomy Additional Past Surgical Histo: Cataract Smoking: Non-smoker Alcohol Use: None Drug Use: None Adult General HPI HPI Patient is a 79-year-old female brought in by emesis with shortness of breath she ran out of her Lasix last week she has a history of anemia and CHF last admitted in July symptoms are moderate she was coughing mostly dry denies chest pain denies fever just not feeling good feeling weak overall. Denies any rectal bleeding or melena apparently for the medics was 88 ra, up to mid 90's here in ed. but does look mildly sob Review of Systems Review of Systems Constitutional: Denies fever or chills [] Eyes: Denies change in visual acuity, redness, or eye pain [] HENT: Denies nasal congestion or sore throat [] Respiratory: Musculoskeletal: Denies back pain or joint pain [] Integument: Denies rash or skin lesions [] Neurologic: Denies headache, focal weakness or sensory changes [] Endocrine: Denies polyuria or polydipsia [] All other systems were reviewed and found to be within normal limits, except as documented in this note. Allergies Allergies Allergies Coded Allergies Type Severity Reaction Last Updated Verified ezetimibe Allergy Intermediate 06/26/15 Yes metformin Allergy Intermediate 06/26/15 Yes niacin Allergy Intermediate 06/26/15 Yes perindopril Allergy Intermediate 06/26/15 Yes pravastatin Allergy Intermediate 06/26/15 Yes Physical Exam Physical Exam Constitutional: Well developed, chronically ill-appearing HENT: Normocephalic, atraumatic, bilateral external ears normal, oropharynx moist, no oral exudates, nose normal. [] Eyes: PERRLA, EOMI, conjunctiva normal, no discharge. [] Neck: Normal range of motion, no tenderness, supple, no stridor. [] Cardiovascular: Difficult exam no definite murmur Lungs & Thorax: Decreased throughout mild tachypnea Abdomen: Bowel sounds normal, soft, no tenderness, no masses, no pulsatile masses. [] Skin: Warm, dry, no erythema, no rash. [] Back: No tenderness, no CVA tenderness. [] Extremities: No tenderness, no cyanosis, no clubbing, ROM intact significant chronic appearing edema with dry skin changes anterior shins Neurologic: Alert and oriented X 3, normal motor function, normal sensory function, no focal deficits noted. [] Psychologic: Affect normal, judgement normal, mood normal. [] EKG EKG []Probably sinus rhythm poor baseline patient was having trouble staying still nonspecific flattening diffusely no STEMI rate of 78 Radiology/Procedures Radiology/Procedures [] Impressions: PULM EDEMA Course & Med Decision Making Course & Med Decision Making Pertinent Labs and Imaging studies reviewed. (See chart for details) [] The patient is a 79-year-old female patient who was admitted with shortness of breath, felt to be due to [id number]-[id number] congestive heart failure, accelerated hypertension, hyperlipidemia, type 2 diabetes, chronic kidney disease and hypokalemia grade 2 diastolic dysfunction, ef 50% CR 2.2 , BASICALLY at baseline from recent priors bp 150's gave dose of k in er 40 iv lasix d/w pawel admit for chf family agreeable Pino Disclaimer Pino Disclaimer This electronic medical record was generated, in whole or in part, using a voice recognition dictation system. Departure Departure: Impression: Primary Impression: Acute on chronic diastolic CHF (congestive heart failure) Disposition: ADMITTED INPATIENT Admitting Physician: Ignacia Peter Condition: STABLE Referrals: NON,STAFF (PCP) RONEN FAITH MD Nov 11, 2019 10:01
[2019-11-11 10:17] LABS: BASO # 0.1 x10^3/uL (0.0-0.2); BASO % 1 % (0-3); EOS # 0.3 x10^3/uL (0.0-0.7); EOS % 3 % (0-3); HEMATOCRIT 25.1 % (36.0-47.0); HEMOGLOBIN 8.3 g/dL (12.0-15.5); LYMPH # 0.6 x10^3/uL (1.0-4.8); LYMPH % 7 % (24-48); MEAN CORPUSCULAR HEMOGLOBIN 24 pg (25-35); MEAN CORPUSCULAR HGB CONC 33 g/dL (31-37); MEAN CORPUSCULAR VOLUME 74 fL (79-100); MONO # 0.4 x10^3/uL (0.0-1.1); MONO % 5 % (0-9); NEUT # 6.8 x10^3uL (1.8-7.7); NEUT % 84 % (31-73); PLATELET COUNT 158 x10^3/uL (140-400); RED BLOOD COUNT 3.38 x10^6/uL (3.50-5.40); RED CELL DISTRIBUTION WIDTH 23.5 % (11.5-14.5)
[2019-11-11 10:26] LABS: CREATININE 2.2 mg/dL (0.6-1.0); GFR 26.1; POTASSIUM 3.7 mmol/L (3.5-5.1)
--- NOTE | 2019-11-11 10:29 | RAD ---
CHEST AP ONLY INDICATION: Dyspnea. COMPARISON STUDY: 08/03/2019. FINDINGS: Lungs: Low lung volume. Prominent interstitial markings. Indistinct pulmonary vasculature. Pleura: No pleural effusion or pneumothorax. Heart and Mediastinum: Cardiomegaly. Atherosclerotic thoracic aorta. Calcified mediastinal lymph nodes. IMPRESSION: Prominent interstitial markings, likely pulmonary edema. Electronically signed by: Min Smallwood MD (11/11/2019 10:26 AM) [facility]
[2019-11-11 10:40] LABS: ALBUMIN 3.1 g/dL (3.4-5.0); ALBUMIN/GLOBULIN RATIO 0.9 (1.0-1.7); TOTAL BILIRUBIN 1.6 mg/dL (0.2-1.0); TOTAL PROTEIN 6.6 g/dL (6.4-8.2)
[2019-11-11] MEDS ORDERED: POTASSIUM CHLORIDE 20 MEQ TABLET.ER. PO ONE (10:45)
[2019-11-11] MEDS ORDERED: FUROSEMIDE 40 MG/4 ML VIAL IVP ONE ×2 (10:45→15:15)
[2019-11-11 10:48] LABS: ANISOCYTOSIS MOD; HYPOCHROMIA SLIGHT; MICROCYTOSIS SLIGHT; OVALOCYTES OCC; PLT ESTIMATE ADEQUATE (ADEQUATE); POIKILOCYTOSIS SLIGHT; POLYCHROMASIA PRESENT; TEAR DROP CELLS OCC
[2019-11-11 11:03] LABS: INFLUENZA A PATIENT NEGATIVE (NEGATIVE); INFLUENZA B PATIENT NEGATIVE (NEGATIVE)
--- NOTE | 2019-11-11 11:59 | NUR ---
Patient arrived to unit via EMS. Patient is oriented to room and procedures. Patient is offered food and drink, and accepts, meal tray ordered. Patient is pleasant and cooperative. Patient is accompanied by family and visiting with family at this time. will continue to monitor.
[2019-11-11 12:28] VITALS: BP 159/74
[2019-11-11 13:21] LABS: BILIRUBIN,URINE NEG (NEG); CLARITY,URINE CLOUDY; COLOR,URINE YELLOW; GLUCOSE,URINE NEG (NEG); NITRITE,URINE NEG (NEG); UROBILINOGEN,URINE 0.2 mg/dL (0.2 mg/dL)
[2019-11-11 13:22] LABS: AMORPHOUS SEDIMENT,UR PRESENT /HPF; BACTERIA,URINE FEW /HPF (0-FEW); GRANULAR CASTS,URINE OCC /HPF; HYALINE CASTS, URINE OCC /HPF; SQUAMOUS EPITHELIAL CELL,UR OCC /LPF
[2019-11-11] MEDS: IPRATRPIUM/ALBUTEROL 0.5/2.5MG 3 ML NEBU. NEB SCH ×2 (15:18→20:13)
[2019-11-11 15:49] VITALS: BP 168/75
--- NOTE | 2019-11-11 17:00 | HP ---
ADMIT DATE: 11/11/2019 HISTORY OF PRESENT ILLNESS: The patient is a 79-year-old -[place] male patient who was brought to the Emergency Room with complaint of shortness of breath. Apparently, she ran out of her Lasix last week and she has a history of anemia, congestive heart failure. She was admitted here in July for similar symptoms. She did complain also of coughing, mostly dry. Denied, however, any chest pain, fever, and just not feeling well and very weak overall. Denied any rectal bleeding or melena. Her oxygen saturation was 88 on room air when the emergency medical service personnel arrived there and her oxygen saturation was up to mid-90s when she arrived to the Emergency Room, but was clearly short of breath when she arrived. She was extensively investigated and had lab work done, showed that she continued to have microcytic hypochromic anemia with stable H and H. Her chemistry also showed that she continued to have stable chronic kidney disease. Her BNP was 12,399. Her prothrombin time and INR were 12.6 and 1.2. Urinalysis was essentially unremarkable. Her influenza A and B were negative. Her chest x-ray showed that the patient has low lung volumes, prominent interstitial marking, indistinct pulmonary vascular. There is no pleural effusion or pneumothorax, mediastinum, cardiomegaly, atherosclerotic thoracic aorta, calcified mediastinal lymph nodes with the impression that the patient has prominent interstitial marking, likely pulmonary edema and she was admitted with acute on chronic diastolic congestive heart failure. She has stable chronic kidney disease and stable microcytic hypochromic anemia. PAST MEDICAL HISTORY: Significant for hypertension, hyperlipidemia. She is known to have chronic diastolic congestive heart failure, history of GI bleed, anemia, osteoarthritis, chronic renal insufficiency and type 2 diabetes mellitus. FAMILY HISTORY: Significant for type 2 diabetes and Alzheimer's disease. SOCIAL HISTORY: She is single, retired. She does not smoke, does not use any drugs. She has no children. She lives with her niece and her children. PAST SURGICAL HISTORY: Significant for esophagogastroduodenoscopy, cataract extraction, cholecystectomy, and colonoscopy. ALLERGIES: She is allergic to VYTORIN, ZETIA, NIACIN, METFORMIN, PRAVASTATIN, and PERINDOPRIL. REVIEW OF SYSTEMS: The patient has had bilateral cataract extraction, but denied any blurring of vision, glaucoma or macular degeneration. Denied any earache, tinnitus or sensorineural deafness. Denied any nosebleeds, stuffy nose or postnasal drip. Denied any sore throat, sore tongue, toothache, hoarseness of voice or difficulty swallowing. Denied any nausea, vomiting, diarrhea or constipation. Denied any hematemesis, melena or hematochezia. Denied any dysuria, frequency or hematuria. Denied any chest pain. Did complain of shortness of breath. Cough is mostly dry. PHYSICAL EXAMINATION: GENERAL: On arrival to the Emergency Room; she looked pale, clearly tachypneic. There is no jaundice, cyanosis or thyromegaly. No jugular venous distention, but mild bilateral lower limb edema. VITAL SIGNS: Her heart rate was 76, blood pressure was 159/74, temperature was 97.9, respiratory rate was 25, and oxygen saturation was 99%. HEAD, EYES, EARS, NOSE AND THROAT: Showed normocephalic, atraumatic. NECK: Supple. HEART: Showed normal first and second heart sounds with no gallop, rub or murmur. CHEST: Shows central trachea, equal bilateral expansion and air entry, vesicular breath sounds. Bilateral scattered rhonchi and wheezing. She has bilateral crackles mostly bilaterally posteriorly. ABDOMEN: Distended, soft, nontender. NEUROLOGIC: She was awake, alert, responding appropriately. All cranial nerves intact. EXTREMITIES: She moves extremities without difficulty. Examination of the extremities showed no clubbing, cyanosis, but bilateral lower limb edema. She does have a large blister on the outer aspect of the right leg. LABORATORY DATA: Her lab work on arrival showed a white cell count of 8000, hemoglobin 8.3, hematocrit 25, MCV 74, and platelet count of 158,000 with normal manual differential. Her chemistry showed a serum sodium 146, potassium 3.7, chloride 108, bicarbonate 29, anion gap of 9, BUN 25, creatinine 2.2, estimated GFR was 26 mL per minute. Her glucose was 107, calcium was 8. Total bilirubin and alkaline phosphatase slightly elevated. AST, ALT normal. Her beta natriuretic peptide was 12,399. Total protein was 6.6, albumin 3.1. Prothrombin time was 12.6, INR 1.2. Urinalysis showed the urine was yellow, cloudy with a pH of 6, specific gravity of 1.015. There was large amount of protein, negative for glucose, ketones, small amount of blood, negative for nitrite and leukocyte esterase, 6-10 rbc's, 1-4 wbc's, very few bacteria. Her chest x-ray showed that she has prominent interstitial marking, likely pulmonary edema. PLAN: The patient was treated with IV Lasix and potassium and was started on her Lantus insulin and Humalog insulin. I will increase her Lasix to 40 mg IV twice a day and we will reconcile all her medications. We will monitor her closely. UMAIR CATALAN MD DR: STEFFANIE/verenice JOB#: [id number] / [id number]
--- NOTE | 2019-11-11 17:42 | EKG ---
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
[2019-11-11] MEDS: INSULIN LISPRO 300 UNITS/3 ML VIAL. SQ SCH (17:47)
[2019-11-11] MEDS ORDERED: INSULIN GLARGINE SYRINGE. SQ SCH (21:00)
[2019-11-11 21:22] VITALS: BP 138/74
[2019-11-11] MEDS: POTASSIUM CHLORIDE 20 MEQ TABLET.ER. PO SCH (21:32)
[2019-11-11] MEDS: HEPARIN for SUB-Q USE 5,000 UNIT/ML VIAL. SQ SCH (21:33)
[2019-11-11] MEDS: CARVEDILOL 6.25 MG TABLET PO SCH (21:34)
[2019-11-11] MEDS: NYSTATIN TOPICAL POWDER 15GM BOTTLE. TP SCH (21:34)
[2019-11-12 00:28] VITALS: BP 144/71
[2019-11-12] MEDS: IPRATRPIUM/ALBUTEROL 0.5/2.5MG 3 ML NEBU. NEB SCH ×4 (05:16→20:22)
[2019-11-12] MEDS: HEPARIN for SUB-Q USE 5,000 UNIT/ML VIAL. SQ SCH (05:43)
[2019-11-12 06:11] VITALS: BP 105/65
[2019-11-12 07:34] LABS: HEMATOCRIT 23.3 % (36.0-47.0); HEMOGLOBIN 7.7 g/dL (12.0-15.5); RED BLOOD COUNT 3.16 x10^6/uL (3.50-5.40); RED CELL DISTRIBUTION WIDTH 23.2 % (11.5-14.5); WHITE BLOOD COUNT 8.1 x10^3/uL (4.0-11.0)
[2019-11-12] MEDS ORDERED: DEXTROSE 50% 25 GM / 50ML DISP.SYRIN. IV ONE (07:38)
[2019-11-12 07:47] LABS: CALCIUM 7.4 mg/dL (8.5-10.1); CREATININE 2.1 mg/dL (0.6-1.0); GFR 27.6; POTASSIUM 3.7 mmol/L (3.5-5.1)
[2019-11-12] MEDS: INSULIN LISPRO 300 UNITS/3 ML VIAL. SQ SCH ×3 (08:00→17:00)
[2019-11-12] MEDS ORDERED: DEXTROSE 50% 25 GM / 50ML DISP.SYRIN. IV PRN ×2 (08:15→12:45)
[2019-11-12] MEDS: FUROSEMIDE 40 MG/4 ML VIAL IVP SCH ×2 (08:32→13:16)
[2019-11-12] MEDS: POTASSIUM CHLORIDE 20 MEQ TABLET.ER. PO SCH ×2 (08:33→21:11)
[2019-11-12] MEDS: ASPIRIN ENTERIC COATED 81 MG TABLET.DR. PO SCH (08:33)
[2019-11-12] MEDS: OMEGA-3 FATTY ACIDS/FISH OIL 1,000 MG CAPSULE. PO SCH (08:33)
[2019-11-12] MEDS: NYSTATIN TOPICAL POWDER 15GM BOTTLE. TP SCH ×2 (08:33→21:11)
[2019-11-12] MEDS: LOSARTAN 50 MG TABLET. PO SCH (08:33)
[2019-11-12] MEDS: ATORVASTATIN CALCIUM 20 MG TABLET PO SCH (08:33)
[2019-11-12] MEDS: amLODIPine BESYLATE 5 MG TABLET PO SCH (08:33)
[2019-11-12] MEDS: CARVEDILOL 6.25 MG TABLET PO SCH ×2 (08:34→21:11)
[2019-11-12] MEDS ORDERED: NON FORMULARY ITEM (Garlic 1,000 MG) PO SCH (09:00)
[2019-11-12 11:19] VITALS: BP 119/67
[2019-11-12 15:56] VITALS: BP 133/61
[2019-11-12 16:02] LABS: HEMATOCRIT 25.4 % (36.0-47.0); HEMOGLOBIN 8.2 g/dL (12.0-15.5)
--- NOTE | 2019-11-12 18:55 | RAD ---
CT study of the right lower leg without contrast Clinical indications: Right lower extremity pain. TECHNIQUE: Noncontrast helical CT scanning of the right lower extremity was performed in all 3 planes. PQRS compliance Statement One or more of the following individualized dose reduction techniques were utilized for this study: 1. Automated exposure control 2. Adjustment of the mA and/or kV according to patient size 3. Use of iterative reconstruction technique FINDINGS: There is a superficial lesion of the skin involving the lateral distal aspect of the right lower leg measuring 42 mm longitudinally and 25 mm in AP dimension but only 9 mm in thickness. This is consistent with a blister. In this area, there are some small subcutaneous fluid collections and could represent small subcutaneous microabscesses. No prominent drainable soft tissue abscess is seen at this time however. There is diffuse circumferential subcutaneous soft tissue edema consistent with cellulitis. No soft tissue mass is seen. No lytic process is seen. No fracture is evident. IMPRESSION: Circumferential subcutaneous soft tissue edema consistent with cellulitis. There is a prominent superficial blister of the lateral aspect of the distal right lower leg. Small underlying subcutaneous fluid collections are seen here. Small subcutaneous abscess is certainly possible. The largest fluid pocket on this noncontrast study is less than 1 cm. Therefore, no prominent drainable subcutaneous abscess is seen at this time. No osteomyelitis is evident. Electronically signed by: Alejandro Eckert MD (11/12/2019 6:52 PM) [facility]
--- NOTE | 2019-11-12 19:42 | PN ---
DATE: 11/12/2019 SUBJECTIVE: The patient is sitting in her chair, eating her lunch comfortably, in no apparent distress. She is feeling generally better, continued to have marked swelling of the right lower extremity with a large blister above the right lateral malleolus. OBJECTIVE: GENERAL: When I examined her, she looked well and was clearly in no apparent respiratory distress. She is pale, but no jaundice, cyanosis or thyromegaly. No jugular venous distention. No lower limb edema. VITAL SIGNS: Her heart rate was 72, blood pressure was 119/67, temperature was 98.2, respiratory rate was 18, and oxygen saturation was 95% on room air. HEAD, EYES, EARS, NOSE, AND THROAT: Showed normocephalic, atraumatic. NECK: Supple. HEART: Showed normal first and second heart sounds. No gallop or murmur. CHEST: Clear to auscultation. No crepitation or rhonchi. ABDOMEN: Slightly distended, soft, nontender. NEUROLOGIC: She is definitely more awake, alert today, responding appropriately. All cranial nerves intact. She moves extremities without difficulty. She has managed to walk today to the bathroom with a walker. Her intake over the last 24 hours was 780, output was 3755. LABORATORY DATA: Her lab work this morning showed a white cell count of 8100, hemoglobin 7.7, hematocrit 23, MCV 74, and platelet count of 133,000. Her chemistry showed a serum sodium of 143, potassium 3.7, chloride 108, bicarbonate 29, anion gap of 6, BUN 26, creatinine 2.1. Her estimated GFR was 27 mL per minute. She has severe hypoglycemia this morning. Her calcium was 7.4. ASSESSMENT: 1. Huyuh-gm-ogpfcdr diastolic congestive heart failure. 2. Hypertension. 3. Hyperlipidemia. 4. History of gastrointestinal bleed. 5. Anemia. In fact, her H and H is drifting down from 8.3 and 25 down to 7.7 and 23. I will definitely discontinue heparin given her tendency to bleed. 6. Chronic renal failure and type 2 diabetes mellitus with marked hypoglycemia, so I will discontinue her scheduled insulin, started her on a low-dose sliding scale before meals only. I will monitor her H and H and transfuse her as needed. Her right lower extremity seemed to be more swollen, and I am wondering whether she has a subcutaneous hematoma in the right. Dictation ends here. UMAIR CATALAN MD DR: STEFFANIE/verenice JOB#: [id number] / [id number]
[2019-11-12 21:14] VITALS: BP 154/73
[2019-11-12 23:41] VITALS: BP 133/74
[2019-11-13] MEDS: IPRATRPIUM/ALBUTEROL 0.5/2.5MG 3 ML NEBU. NEB SCH ×4 (05:13→20:46)
[2019-11-13 05:53] VITALS: BP 130/62
[2019-11-13 06:43] LABS: HEMOGLOBIN 7.7 g/dL (12.0-15.5); RED BLOOD COUNT 3.22 x10^6/uL (3.50-5.40); RED CELL DISTRIBUTION WIDTH 23.3 % (11.5-14.5); WHITE BLOOD COUNT 6.6 x10^3/uL (4.0-11.0)
[2019-11-13 07:03] LABS: ALBUMIN 2.6 g/dL (3.4-5.0); ALBUMIN/GLOBULIN RATIO 0.8 (1.0-1.7); CALCIUM 7.6 mg/dL (8.5-10.1); CREATININE 2.2 mg/dL (0.6-1.0); GFR 26.1; POTASSIUM 4.6 mmol/L (3.5-5.1); TOTAL PROTEIN 5.7 g/dL (6.4-8.2)
[2019-11-13] MEDS: ATORVASTATIN CALCIUM 20 MG TABLET PO SCH (09:08)
[2019-11-13] MEDS: LOSARTAN 50 MG TABLET. PO SCH (09:08)
[2019-11-13] MEDS: OMEGA-3 FATTY ACIDS/FISH OIL 1,000 MG CAPSULE. PO SCH (09:08)
[2019-11-13] MEDS: ASPIRIN ENTERIC COATED 81 MG TABLET.DR. PO SCH (09:09)
[2019-11-13] MEDS: POTASSIUM CHLORIDE 20 MEQ TABLET.ER. PO SCH ×2 (09:09→21:29)
[2019-11-13] MEDS: amLODIPine BESYLATE 5 MG TABLET PO SCH (09:09)
[2019-11-13] MEDS: CARVEDILOL 6.25 MG TABLET PO SCH ×2 (09:09→21:29)
[2019-11-13] MEDS: FUROSEMIDE 40 MG/4 ML VIAL IVP SCH ×2 (09:10→14:10)
[2019-11-13] MEDS: NYSTATIN TOPICAL POWDER 15GM BOTTLE. TP SCH ×2 (09:10→21:29)
[2019-11-13] MEDS: INSULIN LISPRO 300 UNITS/3 ML VIAL. SQ SCH ×3 (09:21→17:00)
[2019-11-13 10:38] VITALS: BP 123/68
[2019-11-13 14:35] VITALS: BP 126/59
--- NOTE | 2019-11-13 15:47 | NUR ---
Requesting tx change to Prn. Pt BS indicate good air movement. Spo2 100% on RA. Pt doesn't use Aero txs at home. CXR doesn't show any indication of acute infiltrates.
--- NOTE | 2019-11-13 17:40 | RAD ---
FOOT RIGHT 3V, ANKLE RIGHT 3V History: Pain with walking. Technique: 3 views right ankle and 3 views right foot. Comparison: None. Findings: Diffuse lower extremity soft tissue swelling. Symmetric ankle mortise. No fracture. Plantar calcaneal spur. Increased sclerosis of the first metatarsal head with erosive changes along the medial and lateral cortex. Diffuse osteopenia. Normal alignment of the foot. No fracture. Impression: 1. Right first metatarsal head increased sclerosis with erosive changes, may represent inflammatory arthropathy such as gout. 2. Diffuse lower extremity soft tissue swelling. Electronically signed by: Magnus Beltre DO (11/13/2019 5:37 PM) [facility]
[2019-11-13 19:43] VITALS: BP 146/74
--- NOTE | 2019-11-13 20:39 | PN ---
DATE: 11/13/2019 SUBJECTIVE: The patient is sitting comfortably in her chair, in no apparent distress. On questioning her, she continued to complain of pain in her right foot. We did actually a CT scan of her right lower extremity without contrast and it showed that the patient has circumferential subcutaneous soft tissue edema consistent with cellulitis. There is a prominent superficial blister on the lateral aspect of the distal right lower leg, small underlying subcutaneous fluid collection are seen here. The small subcutaneous abscess is certainly possible, the largest fluid pocket on this noncontrast study is less than 1 cm; therefore, no prominent drainable subcutaneous abscess seen at this time. No osteomyelitis is evident. Actually, the blisters opened spontaneously on itself and is now covered with dressing. The patient is actually complaining of pain in the right ankle and foot, not in the leg. PHYSICAL EXAMINATION: GENERAL: When I examined her, she looked well and was clearly in no apparent respiratory distress. She was somewhat pale. No jaundice, cyanosis or thyromegaly. No jugular venous distention. No lower limb edema. VITAL SIGNS: Her heart rate was 72, blood pressure was 123/68, temperature was 98.4, respiratory rate was 20, and oxygen saturation 100% on room air. HEAD, EYES, EARS, NOSE AND THROAT: Showed normocephalic, atraumatic. NECK: Supple. HEART: Showed normal first and second heart sounds. No gallop or murmur. CHEST: Clear to auscultation. No crepitation or rhonchi. ABDOMEN: Distended, soft, nontender. NEUROLOGIC: She is awake, alert, responding appropriately. All cranial nerves intact. She moves extremities without difficulty. She ambulates with a walker. Her intake over the last 24 hours was 780, output was 3075. LABORATORY DATA: As of this morning, her serum sodium was 144, potassium 4.6, chloride 107, bicarbonate 33, anion gap of 4, BUN of 31, creatinine 2.2, estimated GFR was 26 mL per minute. Her glucose 158, calcium was 7.6. Total bilirubin, AST, ALT were normal. Alkaline phosphatase slightly elevated. Total protein was 5.7, albumin 2.6. White cell count was 6600, hemoglobin 7.7, hematocrit 24, MCV 75 and platelet count of 138,000. ASSESSMENT: 1. Acute on chronic diastolic congestive heart failure. 2. Hypertension. 3. Hyperlipidemia. 4. History of gastrointestinal bleed. 5. Anemia. 6. Chronic renal failure. 7. Type 2 diabetes mellitus with marked hypoglycemia. PLAN: My plan is to continue with IV Lasix. We will arrange to have an x-ray of her right ankle and right foot and also arrange for her to check her iron study. She has microcytic hypochromic anemia with an MCV of only 75 pg/liter. UMAIR CATALAN MD DR: STEFFANIE/verenice JOB#: [id number] / [id number]
[2019-11-13 22:21] VITALS: BP 136/78
[2019-11-14] MEDS: IPRATRPIUM/ALBUTEROL 0.5/2.5MG 3 ML NEBU. NEB SCH ×2 (04:33→10:45)
[2019-11-14 05:22] VITALS: BP 125/82
[2019-11-14 06:17] LABS: HEMATOCRIT 23.8 % (36.0-47.0); HEMOGLOBIN 7.6 g/dL (12.0-15.5)
[2019-11-14 06:29] LABS: CALCIUM 7.7 mg/dL (8.5-10.1); CREATININE 2.2 mg/dL (0.6-1.0); GFR 26.1; POTASSIUM 4.6 mmol/L (3.5-5.1)
[2019-11-14] MEDS: INSULIN LISPRO 300 UNITS/3 ML VIAL. SQ SCH ×2 (08:00→12:06)
[2019-11-14] MEDS: amLODIPine BESYLATE 5 MG TABLET PO SCH (08:50)
[2019-11-14] MEDS: LOSARTAN 50 MG TABLET. PO SCH (08:50)
[2019-11-14] MEDS: POTASSIUM CHLORIDE 20 MEQ TABLET.ER. PO SCH (08:50)
[2019-11-14] MEDS: ATORVASTATIN CALCIUM 20 MG TABLET PO SCH (08:50)
[2019-11-14] MEDS: FUROSEMIDE 40 MG/4 ML VIAL IVP SCH (08:51)
[2019-11-14] MEDS: ASPIRIN ENTERIC COATED 81 MG TABLET.DR. PO SCH (08:51)
[2019-11-14] MEDS: CARVEDILOL 6.25 MG TABLET PO SCH (08:51)
[2019-11-14] MEDS: OMEGA-3 FATTY ACIDS/FISH OIL 1,000 MG CAPSULE. PO SCH (08:53)
[2019-11-14] MEDS: NYSTATIN TOPICAL POWDER 15GM BOTTLE. TP SCH (08:53)
--- NOTE | 2019-11-14 09:02 | NUR ---
New order for consult to cardiology received for diagnosis of CHF.
--- NOTE | 2019-11-14 09:35 | PDOC2 ---
CARDIAC CONSULT DATE OF CONSULT Date Of Consult DATE: 11/14/19 TIME: 09:27 REASON FOR CONSULT Reason for Consult CHF REFERRING PHYSICIAN Referring Physician Dr. Peter SOURCE Source: Chart review, Patient HPI History of Present Illness This is a 79 yo female who presented secondary to shortness of breath. She has a history of diastolic CHF and ran our of her lasix last week. Developed worsening LE edema and shortness of breath over the weekend. No chest pain, palpitations, dizziness, diaphoresis or nausea/vomiting. Had cough productive of white sputum, but no fevers. Unfortunately had appointment to establish care with PCP, but Lasix prescription ran out prior to appointment. PAST MEDICAL HISTORY Past Medical History Cardiovascular: CHF, HTN, hyperipidemia GI: GI bleed Heme/Onc: Anemia NOS Musculoskeletal: Osteoarthritis Renal/: Chronic renal insuff Endocrine: Diabetes PAST SURGICAL HISTORY Past Surgical History: No pertinent history FAMILY HISTORY Family History: Diabetes SOCIAL HISTORY Social History Smoke: No ALCOHOL: none Drugs: None Lives: with Family CURRENT MEDICATIONS Current Medications Current Medications Furosemide (Lasix) 40 mg 1X ONCE IVP Last administered on 11/11/19at 10:54; Start 11/11/19 at 10:45; Stop 11/11/19 at 10:46; Status DC Potassium Chloride (Klor-Con) 20 meq 1X ONCE PO Last administered on 11/11/19at 10:55; Start 11/11/19 at 10:45; Stop 11/11/19 at 10:46; Status DC Insulin Human Lispro (HumaLOG) 4 units TIDWMEALS SQ Last administered on 11/11/19at 17:47; Start 11/11/19 at 17:00; Stop 11/12/19 at 12:38; Status DC Insulin Glargine (Lantus Syringe) 12 unit QHS SQ Last administered on 11/11/19at 21:33; Start 11/11/19 at 21:00; Stop 11/12/19 at 12:38; Status DC Amlodipine Besylate (Norvasc) 5 mg DAILY PO Last administered on 11/14/19at 08:50; Start 11/12/19 at 09:00 Aspirin (Aspirin Enteric Coated) 81 mg DAILY PO Last administered on 11/14/19at 08:51; Start 11/12/19 at 09:00 Carvedilol (Coreg) 6.25 mg BID PO Last administered on 11/14/19at 08:51; Start 11/11/19 at 21:00 Fish Oil (Fish Oil) 1,000 mg DAILY PO Last administered on 11/14/19at 08:53; Start 11/12/19 at 09:00 Atorvastatin Calcium (Lipitor) 40 mg DAILY PO Last administered on 11/14/19at 08:50; Start 11/12/19 at 09:00 Non-Formulary Medication (Garlic ) 1,000 mg DAILY PO ; Start 11/12/19 at 09:00; Status UNV Losartan Potassium (Cozaar) 100 mg DAILY PO Last administered on 11/14/19at 08:50; Start 11/12/19 at 09:00 Furosemide (Lasix) 40 mg 1X ONCE IVP Last administered on 11/11/19at 15:18; Start 11/11/19 at 15:15; Stop 11/11/19 at 15:16; Status DC Furosemide (Lasix) 40 mg BID@0800,1400 IVP Last administered on 11/14/19at 08:51; Start 11/12/19 at 08:00 Potassium Chloride (Klor-Con) 20 meq BID PO Last administered on 11/14/19at 08:50; Start 11/11/19 at 21:00 Albuterol/ Ipratropium (Duoneb) 3 ml RTQID NEB Last administered on 11/14/19at 04:33; Start 11/11/19 at 16:00 Heparin Sodium (Porcine) (Heparin Sodium) 5,000 unit Q8HRS SQ Last administered on 11/12/19at 05:43; Start 11/11/19 at 22:00; Stop 11/12/19 at 12:38; Status DC Nystatin (Nystop) 1 simona BID TP Last administered on 11/14/19at 08:53; Start 11/11/19 at 21:00 Dextrose (Dextrose 50%-Water Syringe) 25 gm STK-MED ONCE IV ; Start 11/12/19 at 07:38; Stop 11/12/19 at 07:38; Status DC Dextrose (Dextrose 50%-Water Syringe) 12.5 gm PRN Q15MIN PRN IV SEE COMMENTS; Start 11/12/19 at 08:15 Insulin Human Lispro (HumaLOG) 0-5 UNITS TIDWMEALS SQ Last administered on 11/13/19at 12:40; Start 11/12/19 at 17:00 Dextrose (Dextrose 50%-Water Syringe) 12.5 gm PRN Q15MIN PRN IV SEE COMMENTS; Start 11/12/19 at 12:45; Status UNV Active Scripts Active Amlodipine Besylate 5 Mg Tablet 1 Tab PO DAILY Reported Garlic 1,000 Mg Capsule 1,000 Mg PO DAILY LAST DOSE GIVEN: DATE: TIME: NEXT DOSE DUE: DATE: TIME: Aspir-Low (Aspirin) 81 Mg Tablet.dr 81 Mg PO DAILY LAST DOSE GIVEN: DATE: TIME: NEXT DOSE DUE: DATE: TIME: Furosemide 40 Mg Tablet 40 Mg PO [id number] LAST DOSE GIVEN: DATE: TIME: NEXT DOSE DUE: DATE: TIME: Atorvastatin Calcium 40 Mg Tablet 40 Mg PO DAILY LAST DOSE GIVEN: DATE: TIME: NEXT DOSE DUE: DATE: TIME: Losartan Potassium 100 Mg Tablet 100 Mg PO DAILY LAST DOSE GIVEN: DATE: TIME: NEXT DOSE DUE: DATE: TIME: Carvedilol 6.25 Mg Tablet 6.25 Mg PO BID LAST DOSE GIVEN: DATE: TIME: NEXT DOSE DUE: DATE: TIME: Lantus Solostar (Insulin Glargine,Hum.rec.anlog) 100 Unit/1 Ml Insuln.pen 12 Unit SQ QHS LAST DOSE GIVEN: DATE: TIME: NEXT DOSE DUE: DATE: TIME: Fish Oil 1,000 Mg Capsule ([place]-3 Fatty Acids/Fish Oil) 1 Each Capsule 1 Cap PO DAILY LAST DOSE GIVEN: DATE: TIME: NEXT DOSE DUE: DATE: TIME: Novolog Flexpen (Insulin Aspart) 100 Unit/1 Ml Insuln.pen 4 Unit SQ TIDWMEALS LAST DOSE GIVEN: DATE: TIME: NEXT DOSE DUE: DATE: TIME: ALLERGIES Allergies: Coded Allergies: ezetimibe (Verified Allergy, Intermediate, 06/26/15) metformin (Verified Allergy, Intermediate, 06/26/15) niacin (Verified Allergy, Intermediate, 06/26/15) perindopril (Verified Allergy, Intermediate, 06/26/15) pravastatin (Verified Allergy, Intermediate, 06/26/15) ROS Review of Systems 14 point ROS conducted with pertinent positives noted above in HPI PHYSICAL EXAM Physical Exam General: Alert, Oriented X3, Cooperative, No acute distress HEENT: Atraumatic, Mucous membr. moist/pink Lungs: Other (fine expiratory wheezes, rhonchi ) Heart: Regular rate, Normal S1, Normal S2 Abdomen: Soft Extremities: Other (1-2+ bilateral LE edema ) Skin: No breakdown Neuro: Normal speech, Sensation intact Psych/Mental Status: Mental status NL, Mood NL MUSCULOSKELETAL: Osteoarthritic changes both hands VITALS Vital Signs Vital Signs Date Time Temp Pulse Resp B/P (MAP) Pulse Ox O2 Delivery O2 Flow Rate FiO2 11/14/19 08:51 61 125/82 11/14/19 05:22 97.2 20 97 Room Air LABS LABS Laboratory Tests Test 11/12/19 11:48 11/12/19 13:50 11/12/19 15:16 11/12/19 20:33 Glucose (Fingerstick) 88 mg/dL (70-99) 105 mg/dL (70-99) 135 mg/dL (70-99) Hemoglobin 8.2 g/dL (12.0-15.5) Hematocrit 25.4 % (36.0-47.0) Test 11/13/19 05:12 11/13/19 06:05 11/13/19 07:40 11/13/19 11:27 Glucose (Fingerstick) 155 mg/dL (70-99) 155 mg/dL (70-99) 170 mg/dL (70-99) White Blood Count 6.6 x10^3/uL (4.0-11.0) Red Blood Count 3.22 x10^6/uL (3.50-5.40) Hemoglobin 7.7 g/dL (12.0-15.5) Hematocrit 24.0 % (36.0-47.0) Mean Corpuscular Volume 75 fL (79-100) Mean Corpuscular Hemoglobin 24 pg (25-35) Mean Corpuscular Hemoglobin Concent 32 g/dL (31-37) Red Cell Distribution Width 23.3 % (11.5-14.5) Platelet Count 134 x10^3/uL (140-400) Sodium Level 144 mmol/L (136-145) Potassium Level 4.6 mmol/L (3.5-5.1) Chloride Level 107 mmol/L (98-107) Carbon Dioxide Level 33 mmol/L (21-32) Anion Gap 4 (6-14) Blood Urea Nitrogen 31 mg/dL (7-20) Creatinine 2.2 mg/dL (0.6-1.0) Estimated GFR (Cockcroft-Gault) 26.1 BUN/Creatinine Ratio 14 (6-20) Glucose Level 158 mg/dL (70-99) Calcium Level 7.6 mg/dL (8.5-10.1) Total Bilirubin 1.0 mg/dL (0.2-1.0) Aspartate Amino Transf (AST/SGOT) 31 U/L (15-37) Alanine Aminotransferase (ALT/SGPT) 23 U/L (14-59) Alkaline Phosphatase 144 U/L (46-116) Total Protein 5.7 g/dL (6.4-8.2) Albumin 2.6 g/dL (3.4-5.0) Albumin/Globulin Ratio 0.8 (1.0-1.7) Test 11/13/19 16:52 11/13/19 20:06 11/14/19 06:00 11/14/19 07:56 Glucose (Fingerstick) 135 mg/dL (70-99) 179 mg/dL (70-99) 99 mg/dL (70-99) Hemoglobin 7.6 g/dL (12.0-15.5) Hematocrit 23.8 % (36.0-47.0) Sodium Level 140 mmol/L (136-145) Potassium Level 4.6 mmol/L (3.5-5.1) Chloride Level 105 mmol/L (98-107) Carbon Dioxide Level 30 mmol/L (21-32) Anion Gap 5 (6-14) Blood Urea Nitrogen 35 mg/dL (7-20) Creatinine 2.2 mg/dL (0.6-1.0) Estimated GFR (Cockcroft-Gault) 26.1 Glucose Level 107 mg/dL (70-99) Calcium Level 7.7 mg/dL (8.5-10.1) ECHOCARDIOGRAM Echocardiogram <Conclusion> The left ventricular systolic function is low normal. The Ejection Fraction is 50%. There is normal LV segmental wall motion. Moderate mitral regurgitation. Severe tricuspid regurgitation with an estimated PAP of 71 mmHg. There is severe pulmonary hypertension. There is no evidence of significant pericardial effusion. DATE: 08/03/19 7971 ASSESSMENT/PLAN Assessment/Plan 1. Dyspnea secondary to a/c CHF. Unfortunately had appointment to establish care with PCP, but ran out of Lasix prior to appointment. 2. Acute on chronic diastolic HF; secondary to missed Lasix therapy. Improved with diuresis. Recent echo with preserved LV systolic function 3. Hypertension; controlled 4. Hyperlipidemia; statin 5. Diabetes, II; episodes of hypoglycemia. as per PCP 6. CKD; Cr stable per review 7. Hypokalemia Recommendations Continue diuresis with monitoring or renal function Blood pressure controlled; continue present therapy ASA, statin therapy 2 Gm Na diet. 2000cc FR Follow up in out office with Dr. Bey in 6 weeks. CHAD MCKEON APRN Nov 14, 2019 09:35
--- NOTE | 2019-11-14 09:55 | NUR ---
Cardiology requested that patient follow up With Dr. Preston at the [facility] post discharge from hospital.
--- NOTE | 2019-11-14 09:58 | NUR ---
Patient is alert and oriented x 4, speech is clear, able to make wants and needs known and able to verbalize understanding of others. X 1 assist using gait belt and walker. Patient uses bedside commode for urinating and bowel movements. Patient has been continent of urine this shift, no bowel movement at this time. HRR auscultated with irregular rhythm. Patient has an afib rhythm on tele monitor. Patient complains of being SOA, lungs are diminished in bases, inspiratory wheeze heard through out. 02 stats RA at 97%. Respirations are even and unlabored. No cough observed. Skin is appropriate for age and ethnicity. Open wound observed on right lower extremity, outer frost. Covered with foam dressing at this time. Wound consulted. BLE edema present, +1-2 on LLE, +2-3 PITTING on RLE. Lotion applied to BLE, compression housekeeper cleaning cooking stockings applied to BLE this shift. Patient has been cooperative with staff in all cares this shift. No negative moods or behaviors observed. Patient has a 20G LEJ SL, iv push Lasix administered this shift per order for treatment of CHF. Patient denies any pain at this time. Patient is currently sitting up in chair next to bed with call light and fresh fluids with in reach.
[2019-11-14 10:35] VITALS: BP 128/75
--- NOTE | 2019-11-14 12:15 | DISCH ---
HOME HEALTH DISCHARGE/MEDS DISCHARGE INFORMATION: Discharge Date: Nov 14, 2019 Final Diagnosis: Acute on chronic diastolic chf acute gouty arthritis Condition on Discharge: Stable CODE STATUS: Code Status: Full HOME HEALTH: Face to Face: I certify this patient is under my care and that I, or a nurse practitioner or physician's judicial administrative assistant working with me, had a face to face encounter that meets the physician face to face encounter requirements with this patient on 11/14/19 Medical Condition(s): CHF Snf For: Admin/Educate Injections Physical Therapy For: Evalulation/Treatment Occupational Therapy For: Evaluation/Treatment Homebound Status Met By: Unsteady balance w/ amb, POST DISCHARGE ORDERS: Activity Instructions for Disc: Resume previous activity DIET AFTER DISCHARGE: Cardiac CERTIFICATION STATEMENT: Certification Statement: Based on the above finding, I certify that this patient is confined to the home and needs intermittent assisted care, physical therapy and/or speech therapy, or continues to need occupational therapy.~ This patient is under my care, and I have initiated the establishment of the plan of care.~ This patient will be followed by myself or a community physician who will periodically review the plan of care. DISCHARGE MEDICATIONS: Home Meds Active Scripts Amlodipine Besylate (AMLODIPINE BESYLATE) 5 Mg Tablet, 1 TAB PO DAILY for htn, #30 TAB 5 Refills Prov:UMAIR CATALAN MD 08/04/19 Reported Medications Garlic (GARLIC) 1,000 Mg Capsule, 1000 MG PO DAILY for Supplement LAST DOSE GIVEN: DATE: TIME: NEXT DOSE DUE: DATE: TIME: 08/03/19 Aspirin (ASPIR-LOW) 81 Mg Tablet.dr, 81 MG PO DAILY for Heart health LAST DOSE GIVEN: DATE: TIME: NEXT DOSE DUE: DATE: TIME: 08/03/19 Furosemide (FUROSEMIDE) 40 Mg Tablet, 40 MG PO BID92 for CHF LAST DOSE GIVEN: DATE: TIME: NEXT DOSE DUE: DATE: TIME: 08/03/19 Atorvastatin Calcium (ATORVASTATIN CALCIUM) 40 Mg Tablet, 40 MG PO DAILY for Hig h Cholesterol LAST DOSE GIVEN: DATE: TIME: NEXT DOSE DUE: DATE: TIME: 08/03/19 Losartan Potassium (LOSARTAN POTASSIUM) 100 Mg Tablet, 100 MG PO DAILY for HTN LAST DOSE GIVEN: DATE: TIME: NEXT DOSE DUE: DATE: TIME: 08/03/19 Carvedilol (Carvedilol) 6.25 Mg Tablet, 6.25 MG PO BID for HTN LAST DOSE GIVEN: DATE: TIME: NEXT DOSE DUE: DATE: TIME: 08/03/19 Insulin Glargine,Hum.rec.anlog (LANTUS SOLOSTAR) 100 Unit/1 Ml Insuln.pen, 12 UNIT SQ QHS for Diabetes LAST DOSE GIVEN: DATE: TIME: NEXT DOSE DUE: DATE: TIME: 08/03/19 [place]-3 Fatty Acids/Fish Oil (FISH OIL 1,000 MG CAPSULE) 1 Each Capsule, 1 CAP PO DAILY for Heart health LAST DOSE GIVEN: DATE: TIME: NEXT DOSE DUE: DATE: TIME: 06/26/15 Insulin Aspart (NOVOLOG FLEXPEN) 100 Unit/1 Ml Insuln.pen, 4 UNIT SQ TIDWMEALS for Diabetes, SYR LAST DOSE GIVEN: DATE: TIME: NEXT DOSE DUE: DATE: TIME: 06/26/15 UMAIR CATALAN MD Nov 14, 2019 12:15
--- NOTE | 2019-11-14 15:04 | NUR ---
Discharge Note: MILAD[facility] ARMSTRONG [facility] Discharge instructions and discharge home medications reviewed with Patient and a copy given. All questions have been answered and understanding verbalized. The following instructions and handouts were given: chf Discontinued lines and drains:20G ej REMOVED, TIP IN TACT Patient discharged to HOME WITH CARLYLE MOORE.Latasha
--- NOTE | 2019-11-14 20:40 | DS ---
DATE OF DISCHARGE: 11/14/2019 HOSPITAL COURSE: The patient is a 79-year-old female patient, who was admitted through the emergency room with the complaint of shortness of breath. Apparently, she ran out of Lasix the last week and she has a history of anemia and congestive heart failure. She was admitted here in July for similar symptoms. She did complain also of coughing, mostly dry and denied, however, any chest pain or fever and just not feeling well and very weak overall. Denied any rectal bleeding or melena. Her oxygen saturation was only 88% on room air when she arrived to the emergency room. The initial investigation showed that her beta natriuretic peptide was more than 12,000 and her influenza A and B were negative. Chest x-ray showed the patient has ____ lung volume and prominent interstitial marking consistent with pulmonary edema and patient was started on the IV Lasix. She was also found to have markedly swollen right lower extremity with a large blister at the lower end above the lateral malleolus and we did actually a CT scan of her right lower extremity which basically showed that she has circumferential subcutaneous soft tissue edema consistent with cellulitis. There is a prominent superficial blister on the lateral aspect to the distal right lower leg, small underlying subcutaneous fluid collections are seen here and some small subcutaneous abscess is certainly possible. The largest fluid pocket on this noncontrast study is less than 1 cm with no prominent drainable subcutaneous abscess seen at this time. The patient also complained of pain in her right foot and right ankle and we did x-ray which showed that patient has right first metatarsal head increased sclerosis with erosive changes, may represent inflammatory arthropathy such as gout. She has also diffuse lower extremity soft tissue swelling. It transpired the patient has a history of gout before. However, given that she has a history of GI bleed and also chronic kidney disease, we can treat her with the nonsteroidal antiinflammatory medication and/or colchicine and therefore, the patient was discharged on a tapering course of steroids. OBJECTIVE: GENERAL: When I examined her this afternoon, she looked well and was clearly in no apparent respiratory distress. No pallor, jaundice, cyanosis, or thyromegaly. No jugular venous distention. The right lower extremity continued to be more swollen than the left, although this swelling is mostly on the outer aspect to the leg. VITAL SIGNS: Her heart rate was 67, blood pressure was 128/75, temperature was 97.6, respiratory rate 20, and oxygen saturation was 95%. HEAD, EYES, EARS, NOSE, AND THROAT: Showed normocephalic and atraumatic. NECK: Supple. HEART: Showed normal first and second heart sounds. No gallop or murmur. CHEST: Clear to auscultation. No crepitation or rhonchi. ABDOMEN: Distended, soft, and nontender. No guarding or rigidity. No organomegaly. All hernial orifices are intact. The bowel sounds are normal. NEUROLOGIC: She is awake, alert, and responding appropriately. All her cranial nerves are intact. EXTREMITIES: She moves the extremities without difficulty. LABORATORY WORK: This morning showed hemoglobin of 7.6 and hematocrit 23.8. Her chemistry showed a serum sodium of 140, potassium 4.6, chloride 105, bicarbonate 30, anion gap of 5, BUN 35, and creatinine 2.2. Estimated GFR was 26 mL per minute. Her glucose was 107 and calcium was 7.7. Urinalysis was essentially unremarkable. DISCHARGE MEDICATIONS: She was discharged home with home health, to continue on amlodipine besylate 5 mg once a day, aspirin 81 mg once a day, atorvastatin calcium 40 mg daily, carvedilol 6.25 mg twice a day, furosemide 40 mg twice a day, garlic 1000 mg daily, NovoLog insulin 4 units 3 times a day before meals and Lantus insulin 12 units at bedtime, losartan potassium 100 mg daily, and omega-3 fatty acid 1 capsule daily. FINAL DISCHARGE DIAGNOSES: 1. Epdes-[id number]-[id number] diastolic congestive heart failure, well compensated. 2. Hypertension. 3. Hyperlipidemia. 4. Chronic microcytic hypochromic anemia. 5. Generalized osteoarthritis. 6. Type 2 diabetes mellitus. 7. Gouty arthritis. UMAIR CATALAN MD DR: STEFFANIE/verenice JOB#: [id number] / [id number]
== END 2019-11-14 15:05 | disposition home or self-care (01) | DRG 291 ==
LOC: ER 09:35 → 1 SOUTH 11:47
PROVIDERS: ADMIT Internal Medicine; ATTEND Internal Medicine
DX: I13.0 Hypertensive heart and chronic kidney disease with heart failure and stage 1 through stage 4 chronic kidney disease, or unspecified chronic kidney disease (principal); I50.33 Acute on chronic diastolic (congestive) heart failure; L03.115 Cellulitis of right lower limb; N18.9 Chronic kidney disease, unspecified; M15.9 Polyosteoarthritis, unspecified; E78.5 Hyperlipidemia, unspecified; E11.22 Type 2 diabetes mellitus with diabetic chronic kidney disease; D50.9 Iron deficiency anemia, unspecified; E78.00 Pure hypercholesterolemia, unspecified; E87.6 Hypokalemia; H54.7 Unspecified visual loss; I25.10 Atherosclerotic heart disease of native coronary artery without angina pectoris; M10.9 Gout, unspecified; Z82.0 Family history of epilepsy and other diseases of the nervous system; Z83.3 Family history of diabetes mellitus; Z88.8 Allergy status to other drugs, medicaments and biological substances; Z98.49 Cataract extraction status, unspecified eye
CPT/HCPCS: 36415; 51702; 71045; 73610; 73630; 73700; 80048; 80053; 81001; 82728; 82947; 83540; 83550; 83880; 84484; 84550; 85014; 85018; 85025; 85027; 85610; 87804; 93005; 94640; 96374; 97163; J1644; J1815; J1940; J7620; 97112; 99285-25